=== PATIENT | male | born 1940 | race Caucasian/White ===

== ENCOUNTER 2017-08-24 07:54 | Inpatient (IN) ==
--- NOTE | 2017-08-24 08:19 | Emergency Department Note ---
Disposition Clinical Impression: Chest pain Qualifiers: Chest pain type: unspecified Qualified Code(s): R07.9 - Chest pain, unspecified Disposition: Admitted As Inpatient Condition: Good Referrals: Hank Brooks Jr, MD [Primary Care Provider] - Forms: ED Satisfaction Letter Time of Disposition: 09:26 Chest Pain HPI - General Chief Complaint: ED Chest Pain Stated Complaint: chest pain Time Seen by Provider: 08/24/17 08:06 Source: patient Mode of arrival: EMS Limitations: no limitations Vital Signs Reviewed: Yes Nursing Notes Reviewed: Yes - History of Present Illness HPI Narrative: This is a 77 year-old male with history of HTN, HLD, and CAD s/p sten, who presents with substernal chest tightness intermittently for the past 2 weeks, often brought on by exertion and relieved by rest. He developed pain 1.5 hours ago, which did not go away as quickly. It lasted about 45 minutes before it went away. At the time of evaluation, patient is CP-free. Patient reports dyspnea but describes it as chronic, unchanged. He denies any associated fever, cough, abdominal pain, nausea, vomiting, leg pain or swelling. Patient recently saw his PCP Dr. Brooks for these symptoms, and he is scheduled for a stress test 09/03. Pt complaint: chest pain Onset (ago): week(s) (2) Duration: intermittent, now resolved Onset: during rest Pain Location: substernal Severity: moderate Severity scale (1-10): 5 Quality: tightness Pain Radiation: none Improves with: rest Worsens with: exertion Associated symptoms: Reports: dyspnea (chronic, unchanged). Denies: nausea, vomiting, diaphoresis, syncope, palpitations, fever, cough, leg swelling Treatments prior to arrival chest pain: aspirin - Related Data Home Medications Medication Instructions Recorded Confirmed Aspirin [Adult Aspirin Regimen] 81 mg PO DAILY 08/24/17 08/24/17 Atorvastatin Calcium [Lipitor] 20 mg PO QPM 08/24/17 08/24/17 Garlic [Daily Garlic Once-A-Day] 400 mg PO DAILY 08/24/17 08/24/17 Metoprolol Succinate [Toprol Xl] 12.5 mg PO DAILY 08/24/17 08/24/17 Multivit-Min/FA/Lycopen/Lutein 1 tab PO DAILY 06/08/18 06/08/18 [Centrum Silver Men Tablet] [place]-3/Dha/Epa/Fish Oil [Fish Oil 1,000 mg PO DAILY 08/24/17 08/24/17 1,000 mg Softgel] Vitamin B Complex Vit C No.4 150 mg PO DAILY 08/24/17 08/24/17 [Super B Complex] Allergies Allergy/AdvReac Type Severity Reaction Status Date / Time No Known Allergies Allergy Verified 08/24/17 08:45 All systems ED: reviewed and negative except as stated. Constitutional: Denies: fever Cardiovascular: Reports: as per HPI, chest pain (resolved). Denies: palpitations, syncope Respiratory: Reports: dyspnea (chronic). Denies: cough Gastrointestinal: Denies: abdominal pain, nausea, vomiting, hematemesis, melena , hematochezia Musculoskeletal: Denies: neck pain Neurological: Denies: headache, weakness, numbness Chest Pain PMH - Past Medical History Medical history: Reports: hyperlipidemia, hypertension Psychiatric history: Reports: no psych history - Social History Smoking Status: Current every day smoker Alcohol use: Reports: occasionally Drug use: Reports: none Physical Exam - General Limitations: no limitations General appearance: alert, in no apparent distress - Head Head exam: atraumatic, normocephalic - Eye Eye exam: Present: normal appearance - ENT ENT exam: normal exam - Respiratory Respiratory exam: Present: normal lung sounds bilaterally. Absent: respiratory distress - Cardiovascular Cardiovascular exam: Present: regular rate, normal rhythm, normal heart sounds - Abdominal Exam Abdominal exam: Present: soft, Non-Tender. Absent: distention - Extremities Exam Extremities exam: Present: normal inspection. Absent: calf tenderness - Neurological Exam Neurological exam: Present: alert, oriented X3. Absent: motor sensory deficit - Psychiatric Psychiatric exam: Present: normal affect, normal mood - Skin Skin exam: Present: warm, dry, intact Course - Reevaluation(s) Reevaluation #1: Patient remains CP-free. Updated him on test results thus far. Time: 09:25 - Consultations Consultation #1: Reviewed case with Dr. Hayes, and patient accepted for admission. Time: 09:39 Vital Signs Temperature 98.2 F 08/24/17 07:59 Pulse Rate 93 08/24/17 07:59 Respiratory Rate 22 08/24/17 07:59 Blood Pressure 179/94 08/24/17 07:59 O2 Sat by Pulse Oximetry 96 08/24/17 07:59 Temperature 98.2 F 08/24/17 07:59 Pulse Rate 68 08/24/17 08:52 Respiratory Rate 20 08/24/17 08:52 Blood Pressure 159/80 08/24/17 08:52 O2 Sat by Pulse Oximetry 93 08/24/17 08:52 Oxygen Delivery Oxygen Delivery Room Air Chest Pain - Lab Data Result diagrams: 08/24/17 08:04 08/24/17 08:04 Lab Results 08/24/17 08/24/17 08/24/17 Range/Units 08:04 08:04 08:04 WBC 7.9 (4.3-11.1) K/mcL RBC 5.17 (4.19-5.50) M/mcL Hgb 16.4 (12.9-16.9) g/dL Hct 47.3 (37.5-50.1) % MCV 91.5 (83.0-100.0) fL MCH 31.7 (28.0-33.3) pg MCHC 34.7 (31.6-35.5) g/dL RDW 12.6 (11.5-14.5) % Plt Count 214 (140-400) K/mcL MPV 10.2 (9.4-12.4) fL Immature Gran % 0.3 (0-4) % Seg Neutrophils % 60.2 % Lymphocytes % 28.1 % Monocytes % 9.1 % Eosinophils % 1.8 % Basophils % 0.5 % Neutrophils # 4.7 (1.6-8.9) K/mcL Lymphocytes # 2.2 (0.6-4.6) K/mcL Monocytes # 0.7 (0.0-1.3) K/mcL Eosinophils # 0.1 (0.0-0.6) K/mcL Basophils # 0.0 (0.0-0.2) K/mcL PT 9.9 (9.4-12.1) Seconds INR 0.9 APTT 40.4 H (26.0-36.0) Seconds Sodium (136-145) mEq/L Potassium (3.5-5.1) mEq/L Chloride (98-107) mEq/L Carbon Dioxide (23-29) mEq/L BUN (8-23) mg/dL Creatinine (0.70-1.30) mg/dL Est GFR ( Amer) (> 60) Est GFR (Non-Af Amer) (> 60) BUN/Creatinine Ratio (6-26) Glucose (70-105) mg/dL Calculated Osmolality (280-300) Calcium (8.6-10.3) mg/dL Troponin I (< 0.04) ng/mL B-Natriuretic Peptide 37 (Less than 100) pg/mL 08/24/17 Range/Units 08:04 WBC (4.3-11.1) K/mcL RBC (4.19-5.50) M/mcL Hgb (12.9-16.9) g/dL Hct (37.5-50.1) % MCV (83.0-100.0) fL MCH (28.0-33.3) pg MCHC (31.6-35.5) g/dL RDW (11.5-14.5) % Plt Count (140-400) K/mcL MPV (9.4-12.4) fL Immature Gran % (0-4) % Seg Neutrophils % % Lymphocytes % % Monocytes % % Eosinophils % % Basophils % % Neutrophils # (1.6-8.9) K/mcL Lymphocytes # (0.6-4.6) K/mcL Monocytes # (0.0-1.3) K/mcL Eosinophils # (0.0-0.6) K/mcL Basophils # (0.0-0.2) K/mcL PT (9.4-12.1) Seconds INR APTT (26.0-36.0) Seconds Sodium 137 (136-145) mEq/L Potassium 3.8 (3.5-5.1) mEq/L Chloride 104 (98-107) mEq/L Carbon Dioxide 25 (23-29) mEq/L BUN 12 (8-23) mg/dL Creatinine 0.83 (0.70-1.30) mg/dL Est GFR ( Amer) > 60 (> 60) Est GFR (Non-Af Amer) > 60 (> 60) BUN/Creatinine Ratio 14 (6-26) Glucose 109 H (70-105) mg/dL Calculated Osmolality 284 (280-300) Calcium 9.9 (8.6-10.3) mg/dL Troponin I 0.03 (< 0.04) ng/mL B-Natriuretic Peptide (Less than 100) pg/mL - Radiology Data Radiology results reviewed: Yes I reviewed the patient's radiology results. XR/XR chest 1V portable IMPRESSION: No acute cardiopulmonary process. - EKG Data EKG attestation: Yes I reviewed and interpreted this EKG. EKG shows normal: sinus rhythm, axis, intervals ST segment elevation in: aVR ST segment depression in: I, II, aVF, v4, v5 Ectopy: PAC (occasional) When compared to previous EKG there are: changes noted (in comparison ith ) Interpretation: nonspecific ST-T wave changes
[2017-08-24 08:46] LABS: Basophils % 0.5 %; Eosinophils # 0.1 K/mcL (0.0-0.6); Eosinophils % 1.8 %; Hematocrit 47.3 % (37.5-50.1); Hemoglobin 16.4 g/dL (12.9-16.9); Immature Granulocytes % 0.3 % (0-4); Lymphocytes # 2.2 K/mcL (0.6-4.6); Lymphocytes % 28.1 %; Mean Corpuscular HGB Conc 34.7 g/dL (31.6-35.5); Mean Corpuscular Hemoglobin 31.7 pg (28.0-33.3); Mean Corpuscular Volume 91.5 fL (83.0-100.0); Mean Platelet Volume 10.2 fL (9.4-12.4); Monocytes # 0.7 K/mcL (0.0-1.3); Monocytes % 9.1 %; Neutrophils # 4.7 K/mcL (1.6-8.9); Platelet Count 214 K/mcL (140-400); Red Blood Count 5.17 M/mcL (4.19-5.50); Red Cell Distribution Width 12.6 % (11.5-14.5); Segmented Neutrophils % 60.2 %
[2017-08-24 08:55] LABS: INR 0.9; Prothrombin Time 9.9 Seconds (9.4-12.1)
[2017-08-24 08:58] LABS: Activated Partial Thrombo Time 40.4 Seconds (26.0-36.0); BUN/Creatinine Ratio 14 (6-26); Blood Urea Nitrogen 12 mg/dL (8-23); Calcium 9.9 mg/dL (8.6-10.3); Carbon Dioxide 25 mEq/L (23-29); Chloride 104 mEq/L (98-107); Glucose 109 mg/dL (70-105); Osmolality,Calculated 284 (280-300); Potassium 3.8 mEq/L (3.5-5.1); Sodium 137 mEq/L (136-145); eGFR For African Americans > 60 (> 60); eGFR For Non-African Americans > 60 (> 60)
[2017-08-24 09:26] LABS: Troponin I 0.03 ng/mL (< 0.04)
[2017-08-24] MEDS ORDERED: Ondansetron 4 MG/2 ML VIAL IVP PRN (09:38)
[2017-08-24] MEDS ORDERED: *HR* HYDROcodone/Acet 5/325 mg TABLET PO PRN (09:38)
[2017-08-24] MEDS ORDERED: *HR* Promethazine 25 MG/ML VIAL IVP PRN (09:38)
[2017-08-24] MEDS ORDERED: Acetaminophen 325 MG TABLET PO PRN (09:38)
[2017-08-24] MEDS ORDERED: Naloxone 0.4 MG/ML INJ IVP PRN (09:38)
[2017-08-24] MEDS ORDERED: Nitroglycerin 0.4 MG TAB.SUBL SL PRN (09:42)
--- NOTE | 2017-08-24 10:17 | Internal Med History&Physical ---
Date of Encounter: 08/24/17 Time of Encounter: 10:00 Internal Medicine - H&P: HPI Chief complaint: Chest pain Admitted From: Emergency Dept Plans for Post Hospital Care: Home History of present illness: Mr. Jimenez is a 77 year old male with a known past medical history of hypertension, hyperlipidemia and CAD with status post cardiac stents 30 years ago patient now presented emergency room complaining about 2 weeks history of intermittent chest pain located at the right chest wall region radiating to his right arm. Usually his pain last 5 to 10 minutes, however this morning the pain lasted for almost 45 minutes. Patient states that his pain is more like tightness, 6 out of 10 in severity and radiating to his right arm. He denied any active chest pain. Patient is scheduled for an outpatient stress test coming week by his PCP due to his ongoing intermittent chest pain. Past Med Surg Social Fam HX - Past Medical History Medical history: hyperlipidemia, hypertension Psychiatric history: no psych history - Social History Smoking Status: Current every day smoker Smokeless Tobacco Status: No Alcohol use: occasionally Drug use: none - Family History Mother Hx Family Endocrine Disorder: Yes (Diabetes) Father Hx Family Cardiac Disorders: Yes (CT in his 70s) - Additional Family History Additional family history: Patient stated diabetes runs in his family Internal Medicine - H&P: Meds Aspirin [Adult Aspirin Regimen] 81 mg PO DAILY 08/24/17 [History] Atorvastatin Calcium [Lipitor] 20 mg PO QPM 08/24/17 [History] Garlic [Daily Garlic Once-A-Day] 400 mg PO DAILY 08/24/17 [History] Metoprolol Succinate [Toprol Xl] 12.5 mg PO DAILY 08/24/17 [History] Multivit-Min/FA/Lycopen/Lutein [Centrum Silver Men Tablet] 1 tab PO DAILY [History] [place]-3/Dha/Epa/Fish Oil [Fish Oil 1,000 mg Softgel] 1,000 mg PO DAILY 08/24/17 [History] Vitamin B Complex Vit C No.4 [Super B Complex] 150 mg PO DAILY 08/24/17 [History ] 3 Allergy/AdvReac Type Severity Reaction Status Date / Time No Known Allergies Allergy Verified 08/24/17 08:45 All Systems PM: A 10-system review of systems was performed and is negative for pertinent findings except as documented above in the HPI. Review of systems: All the systems are reviewed everything is benign except the systems and symptoms I mentioned in the history of present illness - Constitutional Vitals: Temp Pulse Resp BP Pulse Ox 98.2 F 68 20 159/80 93 08/24/17 07:59 08/24/17 08:52 08/24/17 08:52 08/24/17 08:52 08/24/17 08:52 General appearance: Present: cooperative, A&O X 3, no acute distress, answers questions appropriately - Head Head exam: Present: atraumatic, normal inspection - Neck Neck exam general surgery: Present: supple - Respiratory Respiratory exam: Present: decreased breath sounds. Absent: rales, respiratory distress, rhonchi, wheezes - Cardiovascular Cardiovascular exam: Present: RRR, +S1, +S2. Absent: tachycardia - GI/Abdominal GI/Abdominal exam: Present: normal bowel sounds, soft. Absent: rebound, rigid, tenderness - Extremities Exam Extremities exam: Absent: calf tenderness, pedal edema, tenderness - Back Exam Back exam: Absent: CVA tenderness (L), CVA tenderness (R) - Neurological Exam Neurological exam: Present: alert, oriented X3 - Psychiatric Psychiatric exam: Present: normal affect, normal mood - Skin Skin exam: Absent: rash Internal Med - H&P Results - Labs CBC & Chem 7: 08/24/17 08:04 08/24/17 08:04 Labs: Short CBC 08/24/17 Range/Units 08:04 WBC 7.9 (4.3-11.1) K/mcL Hgb 16.4 (12.9-16.9) g/dL Hct 47.3 (37.5-50.1) % Plt Count 214 (140-400) K/mcL Neutrophils # 4.7 (1.6-8.9) K/mcL BMP 08/24/17 08:04 Sodium 137 Potassium 3.8 Chloride 104 Carbon Dioxide 25 BUN 12 Creatinine 0.83 Glucose 109 H Calcium 9.9 Cardiac Enzymes 08/24/17 Range/Units 08:04 Troponin I 0.03 (< 0.04) ng/mL - Impressions ITS Impressions Chest X-Ray 08/24/17 08:15 IMPRESSION: No acute cardiopulmonary process. D/ / 08/24/2017 08:34:26 Zaheer Johnson MD / Abi Pena Interpreting Provider: Zaheer Johnson MD - Assessment and plan (1) Chest pain Current Visit: Yes Status: Acute Assessment and plan: Will admit the pt into Tele for observation Will place pt on monitoring manager check serial troponin so far negative troponin EKG reviewed- showed normal sinus rhythm, incomplete right bundle branch block and nonspecific ST changes on lateral leads Will place pt on ASA and Nitro PRN for pain Will check FLP in AM Will get pharmacological stress test in AM since pt is high risk for ACS Qualifiers: Chest pain type: unspecified Qualified Code(s): R07.9 - Chest pain, unspecified (2) CAD (coronary artery disease), [place] coronary artery Current Visit: Yes Status: Acute Assessment and plan: Resumed home medication including aspirin, Statin and beta jarrett Qualifiers: [place] vs. transplanted heart: [place] heart Associated angina: with stable angina Qualified Code(s): I25.118 - Atherosclerotic heart disease of [place] coronary artery with other forms of angina pectoris (3) Hypertension Current Visit: Yes Status: Acute Assessment and plan: Resumed all home medications patient blood pressure fairly controlled will start him on hydralazine IV PRN Qualifiers: Hypertension type: essential hypertension Qualified Code(s): I10 - Essential (primary) hypertension (4) Hyperlipidemia Current Visit: Yes Status: Acute Assessment and plan: Resumed home medication Lipitor Qualifiers: Hyperlipidemia type: unspecified Qualified Code(s): E78.5 - Hyperlipidemia , unspecified - Time Spent With Patient Total time spent is greater than 50% in coordination of care (as documented) at patient's floor/unit and/or counseling patient:
--- NOTE | 2017-08-24 17:57 | Electrocardiograph Report ---
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
[2017-08-24] MEDS ORDERED: *HR* Heparin 5,000 UNIT/ML VIAL IVP ONE (21:11)
[2017-08-24] MEDS ORDERED: *HR* Heparin 5,000 UNIT/ML VIAL IVP PRN ×2 (21:11)
[2017-08-24] MEDS ORDERED: amLODIPine 5 MG TABLET PO ONE (21:13)
[2017-08-24 21:48] LABS: Hematocrit 43.8 % (37.5-50.1); Hemoglobin 14.8 g/dL (12.9-16.9); Mean Corpuscular HGB Conc 33.8 g/dL (31.6-35.5); Mean Corpuscular Hemoglobin 31.1 pg (28.0-33.3); Mean Platelet Volume 10.1 fL (9.4-12.4); Platelet Count 190 K/mcL (140-400); Red Blood Count 4.76 M/mcL (4.19-5.50); Red Cell Distribution Width 12.5 % (11.5-14.5)
[2017-08-24 21:54] LABS: Prothrombin Time 10.7 Seconds (9.4-12.1)
[2017-08-24 21:57] LABS: Activated Partial Thrombo Time 36.5 Seconds (26.0-36.0)
[2017-08-24] MEDS: Heparin 25,000 UNIT/500 ML D5W 25,000 UNIT/500 ML BAG IVC SCH (22:23)
[2017-08-25 05:20] LABS: Chol/HDL Ratio 2.6 (0-4.9)
[2017-08-25] MEDS ORDERED: Regadenoson 0.4 MG/5 ML SYRINGE IVP ONE (06:18)
--- NOTE | 2017-08-25 08:57 | Cardiology Consult Note ---
Date of Encounter: 08/25/17 Time of Encounter: 08:55 Assessment and Plan (1) NSTEMI (non-ST elevated myocardial infarction) Current Visit: Yes Status: Acute Per Cardiology: Initial troponin negative with subsequent troponin 0.09 and 0.11. Systolic blood pressures noted 150s to 170s, possible demand ischemia versus non-STEMI-- suspect NSTEMI as ECG has ST depressions and clinical presentation concerning for angina. CP free now. We will proceed with cardiac rehabilitation. Will check echo. On asa, statin, BB, IV Hep gtt. Plan for [facility]. (2) CAD (coronary artery disease), [place] coronary artery Current Visit: Yes Status: Chronic Per Cardiology: Reported hx of 3 stents "[address] Escalante in [place]". Suspect was roughly 15 years ago. Qualifiers: [place] vs. transplanted heart: [place] heart Associated angina: with stable angina Qualified Code(s): I25.118 - Atherosclerotic heart disease of [place] coronary artery with other forms of angina pectoris Discussion w patient/family: The assessment and plan as outlined above was discussed with the patient and/or family members who expressed understanding and agreement. All questions were answered. Thank you for involving us in the care of your patient. Please call with any questions. History of Present Illness Consult date: 08/25/17 Requesting physician: Vaughn Torres Consult reason: Elevated Trop., CP Chief complaint: CP History of present illness: Mr. Jimenez is a 77 year old male with a relevant past medical history of hypertension, hyperlipidemia, CAD, nicotine abuse. Cardiology consult for chest pain and mild troponin elevation. Patient seen with multiple family members at bedside. Currently chest pain- free. He reports development of chest pain intermittently over the past one month with exertional activities and relieved with rest. He describes a right- sided chest pressure/burning and had occasional radiation to his right arm. He denies any other accompanying symptomatology. He reports dyspnea on exertion remains about baseline over the past 3-4 years. Reports he continues to smoke about 1-1/2 packs per day smoking for about 60 years. He denies any dizziness, syncope, falls, palpitations, any active bleeding or blood loss. Reports 2 stents placed in [place] by Dr. Escalante about 30 years ago and had a third stent placed due to stent occlusion. Past Med Surg Social Fam HX - Past Medical History Attestation: Yes The following information was validated with the patient. Source: patient, old records reviewed Medical history: coronary artery disease, hyperlipidemia, hypertension Psychiatric history: no psych history - Past Surgical History Surgical History: orthopedic, other Additional surgical history: b/l shoulder replacement. heart stents 30 years ago - Social History Smoking Status: Current every day smoker Smokeless Tobacco Status: No Alcohol use: occasionally Drug use: none - Family History Mother Hx Family Endocrine Disorder: Yes (Diabetes) Father Hx Family Cardiac Disorders: Yes (OR in his 70s) Medications and Allergies Aspirin [Adult Aspirin Regimen] 81 mg PO DAILY 08/24/17 [History] Atorvastatin Calcium [Lipitor] 20 mg PO QPM 08/24/17 [History] Garlic [Daily Garlic Once-A-Day] 400 mg PO DAILY 08/24/17 [History] Metoprolol Succinate [Toprol Xl] 12.5 mg PO DAILY 08/24/17 [History] Multivit-Min/FA/Lycopen/Lutein [Centrum Silver Men Tablet] 1 tab PO DAILY [History] [place]-3/Dha/Epa/Fish Oil [Fish Oil 1,000 mg Softgel] 1,000 mg PO DAILY 08/24/17 [History] Vitamin B Complex Vit C No.4 [Super B Complex] 150 mg PO DAILY 08/24/17 [History ] 3 Allergy/AdvReac Type Severity Reaction Status Date / Time No Known Allergies Allergy Verified 08/24/17 08:45 All Systems Review: The remainder of the systems were reviewed and are negative - Cardiovascular Cardiovascular: as per HPI, chest pain with exertion, dyspnea on exertion, radiating jaw, neck or arm pain Physical Examination Vital Signs, Last 4 Hours Temp Pulse Resp BP Pulse Ox 08/25/17 08:29 95 08/25/17 07:24 98.0 F 73 16 153/69 95 General: Conversant, No Apparent Distress HEENT: Atraumatic, Normocephaly, Mucus Membranes Moist Neck: No JVD, Normal carotid pulses Cardiac: Reg Rate and Rhythm, Normal S1 and S2, No Murmur Lungs: Normal Breath Sounds, No Wheeze, Rales, Rhonchi Neuro: Alert and responsive, No focal deficits noted Abdomen: Soft, Non-Tender Skin: No rashes noted on visualized skin Musculoskeletal: No Chest Wall Tenderness Extremities: No Clubbing, No Cyanosis, No Edema, Normal Pulses Results 08/24/17 21:32 08/24/17 08:04 Lab Results Laboratory Tests 08/24/17 08/24/17 08/24/17 08:04 08:04 08:04 Hgb Hct 47.3 INR 0.9 Creatinine Est GFR (Non-Af Amer) Troponin I B-Natriuretic Peptide 37 LDL Cholesterol, Calc 08/24/17 08/24/17 08/24/17 08:04 14:42 21:00 Hgb Hct INR Creatinine 0.83 Est GFR (Non-Af Amer) > 60 Troponin I 0.03 0.09 H* 0.11 H* B-Natriuretic Peptide LDL Cholesterol, Calc 08/24/17 08/25/17 21:32 04:47 Hgb 14.8 D Hct INR Creatinine Est GFR (Non-Af Amer) Troponin I B-Natriuretic Peptide LDL Cholesterol, Calc 56 ITS Impressions Chest X-Ray 08/24/17 08:15 IMPRESSION: No acute cardiopulmonary process. D/ / 08/24/2017 08:34:26 Zaheer Johnson MD / Abi Pena Interpreting Provider: Zaheer Johnson MD Active Medications Acetaminophen (Tylenol) 650 mg PO Q6HR PRN PRN Reason: Mild Pain/Fever Stop: 02/23/18 09:39 Hydrocodone Bitart/Acetaminophen ([place] 5-325 Mg) 1 tab PO Q6HR PRN PRN Reason: Moderate Pain Stop: 02/23/18 09:39 Aspirin (Aspirin Ec) 81 mg PO DAILY [facility] Stop: 02/24/18 09:01 Atorvastatin Calcium (Lipitor) 20 mg PO QPM ALAN Stop: 02/23/18 18:01 Last Admin: 08/24/17 19:40 Dose: Not Given Heparin Sodium (Porcine) (Heparin) 4,000 unit IVP Q6H PRN PRN Reason: SEE COMMENTS Stop: 02/23/18 21:12 Heparin Sodium (Porcine) (Heparin) 2,000 unit IVP Q6H PRN PRN Reason: SEE COMMENTS Stop: 02/23/18 21:12 Hydralazine HCl (Hydralazine) 10 mg IVP Q6HR PRN PRN Reason: Hypertension Stop: 02/23/18 10:41 Last Admin: 08/24/17 14:10 Dose: 10 mg Heparin Sodium/Dextrose (Heparin 25,000 Unit/500 Ml D5w) 25,000 unit in 500 mls @ 19.994 mls/hr IVC .Q24H ALAN; 11.6 UNIT/KG/HR PRN Reason: Protocol Stop: 02/23/18 21:16 Last Titration: 08/25/17 05:20 Dose: 11.6 unit/kg/hr, 19.994 mls/hr Metoprolol Succinate (Toprol Xl) 12.5 mg PO DAILY ALAN Stop: 02/24/18 09:01 Multivitamins/Calcium (Thera M Plus) 1 tab PO DAILY ALAN Stop: 02/24/18 09:01 Naloxone HCl (Narcan) 0.4 mg IVP Q2MIN PRN PRN Reason: SEE COMMENTS Stop: 02/23/18 09:39 Nitroglycerin (Nitroglycerin) 0.4 mg SL Q5MIN PRN PRN Reason: Chest Pain Stop: 02/23/18 09:43 Ondansetron HCl (Zofran) 4 mg IVP Q8HR PRN PRN Reason: Nausea And Vomiting Stop: 02/23/18 09:39 Pharmacy Profile Note (Patient Taking Own Medication) 0 each PO DAILY ALAN Stop: 02/24/18 09:01 Promethazine HCl (Phenergan) 12.5 mg IVP Q6HR PRN PRN Reason: Nausea And Vomiting Stop: 02/23/18 09:39 Vitamin B Complex/Vit C/Vit E (Stresstab) 1 each PO DAILY ALAN Stop: 02/24/18 09:01 - Imaging and Cardiology Echo: pending Cardiac cath: pending (SR 90's, ST depression noted II, II, AVf, V4-V6, mild ST elevations noted in V1, V2-- reviewed with Dr. Landaverde) - EKG Interpretation EKG results cardiology: personally reviewed Consult Discharge Plan - Plan Referrals: Hank Brooks Jr, MD [Primary Care Provider] -
[2017-08-25] MEDS ORDERED: Metoprolol XL (24 HR) Succ 25 MG TAB.ER.24H PO SCH (09:00)
[2017-08-25] MEDS: Multivit/Ca/Min/Fe/FA 1 TAB TABLET PO SCH (09:54)
[2017-08-25] MEDS: Aspirin Enteric Coated 81 MG Tablet PO SCH (09:54)
[2017-08-25] MEDS: (Omega-3/Dha/Epa/Fish Oil [Fish Oil 1,000 Mg Softgel] PO SCH (09:54)
[2017-08-25] MEDS: Vitamin B Complex/Vit C/Vit E 1 EACH TABLET PO SCH (09:54)
[2017-08-25] MEDS ORDERED: Metoprolol XL (24 HR) Succ 25 MG TAB.ER.24H PO ONE ×2 (10:20→10:45)
--- NOTE | 2017-08-25 16:57 | Internal Med Progress Note ---
Date of Encounter: 08/25/17 Time of Encounter: 11:00 - Assessment and plan (1) NSTEMI (non-ST elevated myocardial infarction) Current Visit: Yes Status: Acute Assessment and plan: Patient presented with chest pain and found to have elevated troponins Cardiology consult with recommendations for [facility] on 08/27/17 Will continue heparin drip (2) CAD (coronary artery disease), [place] coronary artery Current Visit: Yes Status: Chronic Assessment and plan: Continue home medications -aspirin, Statin and beta jarrett Qualifiers: [place] vs. transplanted heart: [place] heart Associated angina: with stable angina Qualified Code(s): I25.118 - Atherosclerotic heart disease of [place] coronary artery with other forms of angina pectoris (3) Hypertension Current Visit: Yes Status: Acute Assessment and plan: Continue beta jarrett Qualifiers: Hypertension type: essential hypertension Qualified Code(s): I10 - Essential (primary) hypertension (4) Hyperlipidemia Current Visit: Yes Status: Acute Assessment and plan: Continue statin Qualifiers: Hyperlipidemia type: unspecified Qualified Code(s): E78.5 - Hyperlipidemia , unspecified (5) DVT prophylaxis Current Visit: Yes Status: Acute Assessment and plan: Patient on heparin drip as above - Time Spent With Patient Total time spent is greater than 50% in coordination of care (as documented) at patient's floor/unit and/or counseling patient: - Subjective Interval history: Patient without chest pain this morning but with elevated troponins that are trending upward. Cardiology with plans for [facility] on 08/27/17 - Constitutional Vitals: Temp Pulse Resp BP Pulse Ox 97.9 F 84 18 120/82 99 08/25/17 15:34 08/25/17 15:34 08/25/17 15:34 08/25/17 15:34 08/25/17 15:34 General appearance: Present: cooperative, A&O X 3, no acute distress, answers questions appropriately - Respiratory Respiratory exam: Present: CTAB. Absent: accessory muscle use, rales, rhonchi, wheezes - Cardiovascular Cardiovascular exam: Present: RRR, +S1, +S2. Absent: diastolic murmur, gallop, rubs, systolic murmur Internal Medicine: Result - Labs CBC & Chem 7: 08/24/17 21:32 08/24/17 08:04 Labs: Short CBC 08/24/17 Range/Units 21:32 WBC 9.4 (4.3-11.1) K/mcL Hgb 14.8 D (12.9-16.9) g/dL Hct 43.8 (37.5-50.1) % Plt Count 190 (140-400) K/mcL Cardiac Enzymes 08/24/17 Range/Units 21:00 Troponin I 0.11 H* (< 0.04) ng/mL - ABG Interpretation ABG results: PT/INR, D-dimer PT 10.7 Seconds (9.4-12.1) 08/24/17 21:32 - Impressions Impressions Echocardiogram 08/25/17 08:57 Impressions: LVEF 55-60%. Mild left ventricular diastolic dysfunction. No pulmonary hypertension. No significant valvular dysfunction. Left Ventricular Wall Motion: Rest Echo Findings All wall segments showed normal motion. Findings: Study Quality * Technically adequate exam. Right Ventricle * Normal right ventricular structure and function. Right Atrium * Normal right atrial size. Interatrial Septum * No evidence of PFO by color Doppler. Aorta * Normally sized aortic root. ECG Findings * Normal sinus rhythm. Left Ventricle * LVEF 55-60%. * Mild left ventricular diastolic dysfunction. Mitral Valve * Mildly calcified mitral valve leaflets. * No mitral stenosis. * Trace mitral regurgitation. Tricuspid Valve * Trace tricuspid regurgitation. * No tricuspid stenosis. * Estimated RVSP is 19 mmHg. * Estimated RA pressure is 0-5 mmHg. * No pulmonary hypertension. Aortic Valve * No aortic regurgitation. * No aortic stenosis. * Mildly calcified aortic valve leaflets. * Trileaflet aortic valve. Left Atrium * Mildly dilated left atrium. Pericardium * There is a trivial pericardial effusion present. Consult Discharge Plan - Plan Referrals: Hank Brooks Jr, MD [Primary Care Provider] -
[2017-08-25] MEDS: Heparin 25,000 UNIT/500 ML D5W 25,000 UNIT/500 ML BAG IVC SCH (23:16)
[2017-08-26] MEDS: Aspirin Enteric Coated 81 MG Tablet PO SCH (09:00)
[2017-08-26] MEDS: Vitamin B Complex/Vit C/Vit E 1 EACH TABLET PO SCH (09:00)
[2017-08-26] MEDS: Metoprolol XL (24 HR) Succ 25 MG TAB.ER.24H PO SCH (09:01)
[2017-08-26] MEDS: (Omega-3/Dha/Epa/Fish Oil [Fish Oil 1,000 Mg Softgel] PO SCH (09:01)
[2017-08-26] MEDS: Multivit/Ca/Min/Fe/FA 1 TAB TABLET PO SCH (09:01)
--- NOTE | 2017-08-26 09:31 | Cardiology Progress Note ---
Date of Encounter: 08/26/17 Time of Encounter: 09:30 Assessment and Plan (1) NSTEMI (non-ST elevated myocardial infarction) Current Visit: Yes Status: Acute Per Cardiology: Initial troponin negative with subsequent troponin 0.09 and 0.11. Systolic blood pressures noted 150s to 170s, possible demand ischemia versus non-STEMI-- suspect NSTEMI as ECG has ST depressions and clinical presentation concerning for angina. CP free now. Echo: Impressions: LVEF 55-60%. Mild left ventricular diastolic dysfunction. No pulmonary hypertension. No significant valvular dysfunction. Left Ventricular Wall Motion: Rest Echo Findings All wall segments showed normal motion. On asa, statin, BB, IV Hep gtt. Plan for [facility] tomorrow. (2) CAD (coronary artery disease), [place] coronary artery Current Visit: Yes Status: Chronic Per Cardiology: Reported hx of 3 stents "[address] Escalante in [place]". Suspect was roughly 15 years ago. Qualifiers: [place] vs. transplanted heart: [place] heart Associated angina: with stable angina Qualified Code(s): I25.118 - Atherosclerotic heart disease of [place] coronary artery with other forms of angina pectoris Discussion w patient/family: The assessment and plan as outlined above was discussed with the patient and/or family members who expressed understanding and agreement. All questions were answered. Thank you for involving us in the care of your patient. Please call with any questions. Subjective Principal diagnosis: NSTEMI Interval history: Patient denies any concerns or complaints overnight. Chest pain-free. Objective Vital Signs, Last 4 Hours Temp Pulse Resp BP Pulse Ox 08/26/17 06:26 97.9 F 65 18 122/75 94 General: Conversant, No Apparent Distress HEENT: Atraumatic, Normocephaly, Mucus Membranes Moist Neck: No JVD, Normal carotid pulses Cardiac: Reg Rate and Rhythm, Normal S1 and S2, No Murmur Lungs: Normal Breath Sounds, No Wheeze, Rales, Rhonchi Neuro: Alert and responsive, No focal deficits noted Abdomen: Soft, Non-Tender Skin: No rashes noted on visualized skin Musculoskeletal: No Chest Wall Tenderness Extremities: No Clubbing, No Cyanosis, No Edema, Normal Pulses Results 08/24/17 21:32 08/24/17 08:04 Lab Results Active Medications Acetaminophen (Tylenol) 650 mg PO Q6HR PRN PRN Reason: Mild Pain/Fever Stop: 02/23/18 09:39 Hydrocodone Bitart/Acetaminophen (Cabot 5-325 Mg) 1 tab PO Q6HR PRN PRN Reason: Moderate Pain Stop: 02/23/18 09:39 Aspirin (Aspirin Ec) 81 mg PO DAILY ALAN Stop: 02/24/18 09:01 Last Admin: 08/26/17 09:00 Dose: 81 mg Atorvastatin Calcium (Lipitor) 20 mg PO QPM ALAN Stop: 02/23/18 18:01 Last Admin: 08/25/17 18:31 Dose: 20 mg Heparin Sodium (Porcine) (Heparin) 4,000 unit IVP Q6H PRN PRN Reason: SEE COMMENTS Stop: 02/23/18 21:12 Heparin Sodium (Porcine) (Heparin) 2,000 unit IVP Q6H PRN PRN Reason: SEE COMMENTS Stop: 02/23/18 21:12 Hydralazine HCl (Hydralazine) 10 mg IVP Q6HR PRN PRN Reason: Hypertension Stop: 02/23/18 10:41 Last Admin: 08/24/17 14:10 Dose: 10 mg Heparin Sodium/Dextrose (Heparin 25,000 Unit/500 Ml D5w) 25,000 unit in 500 mls @ 19.994 mls/hr IVC .Q24H ALAN; 11.6 UNIT/KG/HR PRN Reason: Protocol Stop: 02/23/18 21:16 Last Titration: 08/26/17 08:55 Dose: 13.28 unit/kg/hr, 22.9 mls/hr Metoprolol Succinate (Toprol Xl) 25 mg PO DAILY ALAN Stop: 02/25/18 09:01 Last Admin: 08/26/17 09:01 Dose: 25 mg Multivitamins/Calcium (Thera M Plus) 1 tab PO DAILY ALAN Stop: 02/24/18 09:01 Last Admin: 08/26/17 09:01 Dose: 1 tab Naloxone HCl (Narcan) 0.4 mg IVP Q2MIN PRN PRN Reason: SEE COMMENTS Stop: 02/23/18 09:39 Nitroglycerin (Nitroglycerin) 0.4 mg SL Q5MIN PRN PRN Reason: Chest Pain Stop: 02/23/18 09:43 Ondansetron HCl (Zofran) 4 mg IVP Q8HR PRN PRN Reason: Nausea And Vomiting Stop: 02/23/18 09:39 Pharmacy Profile Note (Patient Taking Own Medication) 0 each PO DAILY ALAN Stop: 02/24/18 09:01 Last Admin: 08/26/17 09:01 Dose: Not Given Promethazine HCl (Phenergan) 12.5 mg IVP Q6HR PRN PRN Reason: Nausea And Vomiting Stop: 02/23/18 09:39 Vitamin B Complex/Vit C/Vit E (Stresstab) 1 each PO DAILY ALAN Stop: 02/24/18 09:01 Last Admin: 08/26/17 09:00 Dose: 1 each - Imaging and Cardiology Echo: report reviewed Cardiac cath: pending Consult Discharge Plan - Plan Referrals: Hank Brooks Jr, MD [Primary Care Provider] -
[2017-08-26 10:26] LABS: Basophils % 0.4 %; Eosinophils # 0.1 K/mcL (0.0-0.6); Eosinophils % 1.1 %; Hematocrit 45.7 % (37.5-50.1); Hemoglobin 15.2 g/dL (12.9-16.9); Immature Granulocytes % 0.2 % (0-4); Lymphocytes # 1.9 K/mcL (0.6-4.6); Lymphocytes % 22.9 %; Mean Corpuscular HGB Conc 33.3 g/dL (31.6-35.5); Mean Corpuscular Volume 93.1 fL (83.0-100.0); Mean Platelet Volume 10.5 fL (9.4-12.4); Monocytes # 0.5 K/mcL (0.0-1.3); Monocytes % 5.8 %; Neutrophils # 5.7 K/mcL (1.6-8.9); Platelet Count 196 K/mcL (140-400); Red Blood Count 4.91 M/mcL (4.19-5.50); Red Cell Distribution Width 12.5 % (11.5-14.5); Segmented Neutrophils % 69.6 %
[2017-08-26 10:43] LABS: BUN/Creatinine Ratio 13 (6-26); Blood Urea Nitrogen 12 mg/dL (8-23); Calcium 9.3 mg/dL (8.6-10.3); Carbon Dioxide 26 mEq/L (23-29); Chloride 102 mEq/L (98-107); Glucose 205 mg/dL (70-105); Osmolality,Calculated 286 (280-300); Potassium 3.8 mEq/L (3.5-5.1); Sodium 135 mEq/L (136-145); eGFR For African Americans > 60 (> 60); eGFR For Non-African Americans > 60 (> 60)
--- NOTE | 2017-08-26 16:12 | Internal Med Progress Note ---
Date of Encounter: 08/26/17 Time of Encounter: 11:00 - Assessment and plan (1) NSTEMI (non-ST elevated myocardial infarction) Current Visit: Yes Status: Acute Assessment and plan: Patient presented with chest pain and found to have elevated troponins Cardiology consult with recommendations for [facility] on 08/27/17 Will continue heparin drip (2) CAD (coronary artery disease), [place] coronary artery Current Visit: Yes Status: Chronic Assessment and plan: Continue home medications -aspirin, Statin and beta jarrett Qualifiers: [place] vs. transplanted heart: [place] heart Associated angina: with stable angina Qualified Code(s): I25.118 - Atherosclerotic heart disease of [place] coronary artery with other forms of angina pectoris (3) Hypertension Current Visit: Yes Status: Acute Assessment and plan: Continue beta jarrett Qualifiers: Hypertension type: essential hypertension Qualified Code(s): I10 - Essential (primary) hypertension (4) Hyperlipidemia Current Visit: Yes Status: Acute Assessment and plan: Continue statin Qualifiers: Hyperlipidemia type: unspecified Qualified Code(s): E78.5 - Hyperlipidemia , unspecified (5) DVT prophylaxis Current Visit: Yes Status: Acute Assessment and plan: Patient on heparin drip as above - Time Spent With Patient Total time spent is greater than 50% in coordination of care (as documented) at patient's floor/unit and/or counseling patient: - Subjective Interval history: Patient with elevated troponins Cardiology with plans for [facility] on 08/27/17 - Constitutional Vitals: Temp Pulse Resp BP Pulse Ox 97.9 F 73 18 135/73 93 08/26/17 15:01 08/26/17 15:01 08/26/17 15:01 08/26/17 15:01 08/26/17 15:01 General appearance: Present: cooperative, A&O X 3, no acute distress, answers questions appropriately - Respiratory Respiratory exam: Present: CTAB. Absent: accessory muscle use, rales, rhonchi, wheezes - Cardiovascular Cardiovascular exam: Present: RRR, +S1, +S2. Absent: diastolic murmur, gallop, rubs, systolic murmur Internal Medicine: Result - Labs CBC & Chem 7: 08/26/17 09:56 08/26/17 09:56 Labs: Short CBC 08/26/17 Range/Units 09:56 WBC 8.2 (4.3-11.1) K/mcL Hgb 15.2 (12.9-16.9) g/dL Hct 45.7 (37.5-50.1) % Plt Count 196 (140-400) K/mcL Neutrophils # 5.7 (1.6-8.9) K/mcL BMP 08/26/17 09:56 Sodium 135 L Potassium 3.8 Chloride 102 Carbon Dioxide 26 BUN 12 Creatinine 0.94 Glucose 205 H Calcium 9.3 - ABG Interpretation ABG results: PT/INR, D-dimer PT 10.7 Seconds (9.4-12.1) 08/24/17 21:32 Consult Discharge Plan - Plan Referrals: Hank Brooks Jr, MD [Primary Care Provider] -
[2017-08-26] MEDS: Heparin 25,000 UNIT/500 ML D5W 25,000 UNIT/500 ML BAG IVC SCH (21:12)
--- NOTE | 2017-08-27 09:08 | Event Note ---
Date of Encounter: 08/27/17 Time of Encounter: 08:30 - Cardiology Event Note ECHO: Impressions: LVEF 55-60%. Mild left ventricular diastolic dysfunction. No pulmonary hypertension. No significant valvular dysfunction. Left Ventricular Wall Motion: Rest Echo Findings All wall segments showed normal motion. Chest pain-free. Remains on IV heparin drip. Catheterization pending today. All questions answered.
[2017-08-27] MEDS ORDERED: 0.9 % Sodium Chloride 1,000 ML ONE ×2 (09:52→10:22)
[2017-08-27] MEDS ORDERED: ISOVUE-370 200 ML INFUS..BTL IV ONE (09:52)
[2017-08-27] MEDS ORDERED: Heparin 1,000 UNITS/500 mL 500 ML ONE (09:52)
[2017-08-27] MEDS ORDERED: *HR* Heparin 10,000 UNIT/10 ML VIAL ONE (09:52)
[2017-08-27] MEDS ORDERED: Nitroglycerin 1,000 MCG/10 ML VIAL IV ONE (09:52)
[2017-08-27] MEDS ORDERED: Verapamil 5 MG/2 ML VIAL ONE (10:00)
[2017-08-27] MEDS ORDERED: *HR* FentaNYL (PF) 100 MCG/2 ML VIAL ONE ×2 (10:01→17:46)
[2017-08-27] MEDS ORDERED: *HR* Midazolam HCl 2 MG/2 ML VIAL ONE (10:01)
[2017-08-27] MEDS: Metoprolol XL (24 HR) Succ 25 MG TAB.ER.24H PO SCH (10:08)
[2017-08-27] MEDS: Aspirin Enteric Coated 81 MG Tablet PO SCH (10:09)
[2017-08-27] MEDS: Vitamin B Complex/Vit C/Vit E 1 EACH TABLET PO SCH (10:09)
[2017-08-27] MEDS: Multivit/Ca/Min/Fe/FA 1 TAB TABLET PO SCH (10:09)
[2017-08-27] MEDS: (Omega-3/Dha/Epa/Fish Oil [Fish Oil 1,000 Mg Softgel] PO SCH (10:09)
[2017-08-27 10:46] LABS: Basophils % 0.3 %; Eosinophils # 0.1 K/mcL (0.0-0.6); Eosinophils % 1.2 %; Hematocrit 43.1 % (37.5-50.1); Hemoglobin 14.7 g/dL (12.9-16.9); Immature Granulocytes % 0.3 % (0-4); Lymphocytes # 1.9 K/mcL (0.6-4.6); Lymphocytes % 21.7 %; Mean Corpuscular HGB Conc 34.1 g/dL (31.6-35.5); Mean Corpuscular Hemoglobin 31.4 pg (28.0-33.3); Mean Corpuscular Volume 92.1 fL (83.0-100.0); Mean Platelet Volume 10.4 fL (9.4-12.4); Monocytes # 0.7 K/mcL (0.0-1.3); Monocytes % 8.4 %; Neutrophils # 5.9 K/mcL (1.6-8.9); Platelet Count 175 K/mcL (140-400); Red Blood Count 4.68 M/mcL (4.19-5.50); Red Cell Distribution Width 12.6 % (11.5-14.5); Segmented Neutrophils % 68.1 %
[2017-08-27 11:11] LABS: BUN/Creatinine Ratio 15 (6-26); Blood Urea Nitrogen 12 mg/dL (8-23); Calcium 9.1 mg/dL (8.6-10.3); Carbon Dioxide 27 mEq/L (23-29); Chloride 104 mEq/L (98-107); Glucose 123 mg/dL (70-105); Osmolality,Calculated 287 (280-300); Potassium 3.9 mEq/L (3.5-5.1); Sodium 138 mEq/L (136-145); eGFR For African Americans > 60 (> 60); eGFR For Non-African Americans > 60 (> 60)
--- NOTE | 2017-08-27 11:29 | Pre-Sedation Evaluation ---
Pre-sedation evaluation - Pre-sedation checklist Date of procedure: 08/27/17 Procedure: [facility] Recent Vitals: Last Vital Signs Temp 98.0 F 08/27/17 07:35 Pulse 63 08/27/17 07:35 Resp 18 08/27/17 07:35 BP 151/80 08/27/17 07:35 Pulse Ox 95 08/27/17 07:35 H&P (including ROS) documented in medical record: Yes Previous reaction to sedatives/anesthetics: No Dietary Status: NPO after Midnight Airway Assessment: Patient can open mouth completely, TMJ function normal ASA Classification *see protocol: CLASS II-Mild systemic disease Plan of Care: Pt appropriate candidate for procedure/moderate/conscious sedation , Risks/benefits of procedure/sedation discussed w/ patient/family
--- NOTE | 2017-08-27 11:31 | Event Note ---
Date of Encounter: 08/27/17 Time of Encounter: 11:30 - Cardiology Event Note LHC findings Ostial LMCA 95-99%; distal left main 60% into ostial proximal LAD 70-80% -mild moderate calcification; RCA mid 70% instent restenosis. Consult CT surgery. Recommend Urgent CABG.
--- NOTE | 2017-08-27 11:55 | Invasive Diagnostic Lab Proc ---
Name: Sánchez Jimenez Date of Study: 08/27/2017 Date: 1940 Ht: 68.1in Medical Record#: [id number] Age: 77 Wt: 211.64lb Gender: Male BSA: 2.1 Order #: [id number] BMI: 32.08 Physicians Procedure Physician: J Luis Landaverde MD, [facility] Referring MD: Referring MD: Staff Name Position Time In Ashley Richard RN Monitor 10:46 AM Tawanda Austin RT (R) Scrub 10:46 AM Marilee Castellon RN Television Producer 10:46 AM Indications Indication Non-Stemi Procedures Performed Procedure L HRT ARTERY/VENTRICLE ANGIO Pre-Procedure Checklist Informed consent is complete signed and on chart. H&P is on chart. ID band is on and ID verified with patient. Patient NPO for procedure The procedure was described for the patient and questions were answered. Blood Pressure: 176/75 ECG is on chart. Rhythm: NSR Plan of Care Patient will tolerate the procedure without complications. Adequate level of comfort will be maintained. Hemodynamics will remain stable Patient will recover from procedure without complications. Cardiac rhythm will remain stable. Patient temperature will be maintained. Patient and/or family have verbalized understanding of the procedure. Patient Education Chief Complaint/Reason for Test: Cardiac Cath Developmental Category: Geriatric (65+ years) Developmentally Appropriate for Age: Yes Learning Barriers: None Education Needs: Procedure Education Method: Verbal Information Taught: Cardiac Cath Educational Evaluation: Able to repeat information Intravenous Access Time IV Size Location DC'd Fluid/Drip Rate Units RN 10:40 AM 18g 1 /" Patent On Arrival Lt Antecubital 0.9NaCl 25 ml/hr Marilee Castellon RN Allergies No Known Allergies Vital Signs Time BP (mmHg) HR (bpm) O2 Sat. RR (bpm) LOC 09:59 AM 176 / 75 71 95 % 5 = Fully awake and oriented or at pre-proc level 10:45 AM / % 5 = Fully awake and oriented or at pre-proc level 10:45 AM / % 4 = Oriented but drowsy 11:01 AM / % 4 = Oriented but drowsy 10:42 AM 134 / 72 62 98 % 10:48 AM 166 / 84 75 96 % 10:52 AM 152 / 74 63 97 % 10:57 AM 143 / 69 66 95 % 11:02 AM 147 / 80 64 96 % 11:07 AM 78 / 51 68 95 % 11:08 AM 145 / 81 67 95 % 11:12 AM 152 / 76 68 94 % 11:17 AM 162 / 70 65 96 % 11:22 AM 148 / 76 62 97 % 11:28 AM 155 / 76 61 97 % 11:18 AM / % 4 = Oriented but drowsy Procedural Medications Time Medication Dose Units Method Given By 10:45 AM Oxygen 2 L/min nasal cannula Marilee Castellon RN 10:47 AM Versed 2 mg Intravenous Marilee Castellon RN 10:47 AM Fentanyl 50 mcg Intravenous Marilee Castellon RN 10:53 AM Lidocaine 2% 0.5 ml Subcutaneous J Luis Landaverde MD, [facility] 10:54 AM Lidocaine 2% 0.5 ml Subcutaneous J Luis Landaverde MD, [facility] 10:58 AM Lidocaine 2% 19 ml Subcutaneous J Luis Landaverde MD, [facility] ASA Classification: CLASS II- Mild systemic disease (i.e. well-controlled diabetes, hypertension, asthma, cigarette smoking) Jovon Score Preprocedure Postprocedure Activity 2- Moves 4 extremities sustained head lift Activity 2- Moves 4 extremities sustained head lift Circulation 2- SBP +/= 20 points of pre-anesthetic level Circulation 2- SBP +/= 20 points of pre-anesthetic level Consciousness 2- Awake and alert oriented x 3 Consciousness 2- Awake and alert oriented x 3 O2 Saturation 2- Able to maintain O2 satruation of 92% on room air O2 Saturation 2- Able to maintain O2 satruation of 92% on room air Respiratory 2- Able to deep breathe and cough well Respiratory 2- Able to deep breathe and cough well Total Score 10 Total Score 10 Contrast Agent: Isovue Diagnostic Contrast: 45 ml Total Contrast: 45 ml Fluoro Dose: 196 mGy Activated Clotting Time Time Seconds to Clot 11:19 AM 95 Procedure Log Time Note Enter By 10:04 AM CathStat 10:40 AM Pt arrived to parking lot laborer 1 at 10:40 scoates 10:40 AM Physician arrived 10:40 scoates 10:41 AM ASA Class CLASS II- Mild systemic disease (i.e. well-controlled diabetes, hypertension, asthma, cigarette smoking) scoates 10:41 AM Meet and greet completed scoates 10:41 AM Sign in performed according to hospital policy. scoates 10:41 AM Procedure start 10:41 scoates 10:41 AM Vitals capture started with the following parameters, Patient=Adult, Interval=5 min, Initial Ptxzkims=497 mmHg, Deflation Rate=3 mmHg, Cuff placed on Right Arm 10:42 AM HR=62 bpm, XJRP=121/72 mmhg, SpO2=98.0 %, Comment=nsr 10:45 AM Patient charges- Angio tray pack, Navilyst 3mm J, Pulse Oximetry and ACIST tubing and transducer scoates 10:45 AM Case Delayed no. inpatient scoates 10:45 AM Time: 10:45 Patient comfortable and pain free: Yes scoates 10:45 AM Time: 10:45LOC: 5 = Fully awake and oriented or at pre-proc level scoates 10:45 AM Time: 10:45 Oxygen on at 2 L/min per nasal cannula by Marilee Castellon RN scoates 10:46 AM Ashley Richard RN Position: Monitor Time in: 10:46 scoates 10:46 AM Tawanda Austin RT (R) Position: Scrub Time in: 10:46 scoates 10:46 AM Marilee Castellon RN Position: Television Producer Time in: 10:46 scoates 10:46 AM Clinical Presentation: Non-STEMI scoates 10:47 AM Time: 10:47 Fentanyl 50 mcg Intravenous Given by Marilee Castellon RN scoates 10:47 AM Time: 10:47 Versed 2 mg Intravenous Given by Marilee Castellon RN scoates 10:48 AM HR=75 bpm, FRUT=426/84 mmhg, SpO2=96.0 %, Comment=nsr 10:49 AM physician notified that we are ready scoates 10:51 AM Hair removed from procedure site in procedure lab using clippers. Right wrist and rt groin prepped with Chloraprep by Marilee Castellon RN, then patient was draped. Skin intact. scoates 10:52 AM HR=63 bpm, SIDF=102/74 mmhg, SpO2=97.0 %, Comment=nsr 10:53 AM Time out performed according to hospital policy scoates 10:54 AM Time: 10:53 0.5 ml Lidocaine 2% to right radial Subcutaneous Given by J Luis Landaverde MD, [facility] scoates 10:54 AM Unsuccessful access attempt # 1 into the right Radial artery. Manual pressure applied to achieve hemostasis.. scoates 10:55 AM Time: 10:54 0.5 ml Lidocaine 2% to right radial Subcutaneous Given by J Luis Landaverde MD, [facility] scoates 10:55 AM Pressure channel 1 zeroed. 10:56 AM Unsuccessful access attempt # 2 into the right Radial artery. Manual pressure applied to achieve hemostasis.. scoates 10:57 AM HR=66 bpm, JTBS=133/69 mmhg, SpO2=95.0 %, Comment=nsr 10:58 AM Time: 10:58 19 ml Lidocaine 2% to right groin Subcutaneous Given by J Luis Landaverde MD, [facility] scoates 11:01 AM Time: 10:45LOC: 4 = Oriented but drowsy scoates 11:01 AM Time: 10:45 Patient comfortable and pain free: Yes scoates 11:02 AM HR=64 bpm, RYVZ=042/80 mmhg, SpO2=96.0 %, Comment=nsr 11:02 AM Access obtained by percutaneous puncture. 6Fr 10cm Terumo Glidesheath sheath placed in right Femoral artery. [id number] scoates 11:03 AM 5Fr FL 4 catheter inserted over the wire [facility] scoates 11:03 AM Recorded Pressure: Ao, HR=66, Condition=Condition 1 (Aorta) Ao 143/60/96 11:05 AM Recorded Pressure: Ao, HR=66, Condition=Condition 1 (Aorta) Ao 124/67/91 11:06 AM LCA angiography performed in multiple views. scoates 11:07 AM Recorded Pressure: LV, HR=69, Condition=Condition 1 (Left Ventricle) LV 147/3/17 11:07 AM HR=68 bpm, NIBP=78/51 mmhg, SpO2=95 % 11:07 AM NIBP STAT measurement started. 11:07 AM Catheter selectively placed in left ventricle scoates 11:08 AM Bolus angiogram of left Ventricle complete: 10 ml/sec for a total of 30 mls scoates 11:08 AM Recorded Pressure: LV, Ao, HR=66, Condition=Condition 1 (Left Ventricle) LV 140/4/18, (Aorta) Ao 142/59/92 11:08 AM Recorded Pressure: Ao, HR=68, Condition=Condition 1 (Aorta) Ao 143/65/96 11:08 AM Recorded Pressure: Ao, HR=67, Condition=Condition 1 (Aorta) Ao 123/73/96 11:08 AM HR=67 bpm, DSID=469/81 mmhg, SpO2=95 % 11:09 AM Catheter removed scoates 11:10 AM Recorded Pressure: Ao, HR=72, Condition=Condition 1 (Aorta) Ao 138/59/90 11:10 AM 5Fr FR 4 catheter inserted over the wire DNC scoates 11:11 AM RCA angiography performed in multiple views. scoates 11:11 AM Coronary Dominance: right scoates 11:12 AM Bolus angiogram of right Femoral complete: 4 ml/sec for a total of 7 mls scoates 11:12 AM HR=68 bpm, WJUR=959/76 mmhg, SpO2=94.0 % 11:12 AM Coronary Dominance: right scoates 11:12 AM Lesion found in LMCA. Pre Stenosis: 95 Pre MARISELA Flow: scoates 11:12 AM Lesion found in LMCA. Pre Stenosis: 60 Pre MARISELA Flow: scoates 11:12 AM Lesion found in Mid RCA. Pre Stenosis: 80 Pre MARISELA Flow: scoates 11:13 AM Lesion found in Proximal LAD. Pre Stenosis: 70 Pre MARISELA Flow: scoates 11:13 AM Procedure completed at 11:13 scoates 11:17 AM HR=65 bpm, GJTB=553/70 mmhg, SpO2=96 % 11:18 AM Time: 11:01LOC: 4 = Oriented but drowsy scoates 11:19 AM At 11:19 the ACT was 146 seconds. scoates 11:20 AM Sign out completed: Radiation Dose 196 mGy Fluoro Time: 2.0 Isovue 370 - 200ml contrast 45 ml given by J Luis Landaverde MD, [facility]. Complications: NoneCardiac Rehab Consult needed: NoConfirmed administered medications: Yes scoates 11:20 AM Isovue 370 - 200ml,1 Bottle(s) used. scoates 11:20 AM Arterial sheath pulled using manual compression and V+ Pad for 15 minutes by Tawanda Austin RT (R) scoates 11:20 AM Estimated Blood Loss: minimal scoates 11:20 AM Post ECG NSR scoates 11:20 AM Post Blood Pressure 162/70 scoates 11:22 AM 11:20 Post Pulses Bilateral DP & PT 2+ scoates 11:22 AM HR=62 bpm, YVWE=363/76 mmhg, SpO2=97 % 11:22 AM Information taught Cardiac Cath scoates 11:22 AM Education needs Procedure, Plan of Care, and Responsibilities of Patient in Care scoates 11:22 AM Learning barriers :None scoates 11:23 AM Education evaluation Able to repeat information scoates 11:23 AM Plavix, Effient or Brilinta given No scoates 11:25 AM Delay to floor No scoates 11:28 AM HR=61 bpm, BPKE=512/76 mmhg, SpO2=97 % 11:29 AM Family placed in consult room. scoates 11:29 AM Complications: None scoates 11:30 AM Fluoro Time: 2 scoates 11:30 AM Isovue 370 - 200ml contrast 45 ml given by . scoates 11:31 AM Cardiothoracic surgeon consulted by physician scoateedouard 11:32 AM Site status No bleeding/hematoma - Rt Groin as reported by Tawanda Austin RT (R) at 11:32 scoates 11:33 AM Time: 11:18LOC: 4 = Oriented but drowsy scoates 11:41 AM Report given to Fidelina LEWIS Pt taken to ICU Room #11. 11:41 scoates 11:41 AM Patient out of room: 11:41 scoates Complications Complication None None Hemodynamics Pressures Site Systolic/A Wave Diastolic/V Wave Mean AO 143 60 96 AO 124 67 91 LV 147 3 17 LV 140 4 18 AO 142 59 92 AO 143 65 96 AO 123 73 96 AO 138 59 90 Post Procedure Information Blood Pressure: 162/70 mmHg Rhythm: NSR Post procedural instructions were given Surgery consult for CABG Closure Device Time Device Success/Fail 08/27/2017 11:32:00 AM Manual Compression Successful Site Checks Time Location Status Staff Sheath In? Note 11:32 AM Rt Groin No bleeding/hematoma Tawanda Austin RT (R) Pulses Time Site Pre-Procedure Post-Procedure Note 08/27/2017 10:40:00 AM Bilateral DP & PT 2+ 08/27/2017 10:40:00 AM Bilateral radial 2+ 11:20:00 AM Bilateral DP & PT 2+ Updated by Ashley Escamilla RN on 08/27/2017 11:46:15 AM electronically signed on 08/27/2017 11:47:00 AM with status of Final
[2017-08-27] MEDS ORDERED: CeFAZolin Syr 2,000MG/20 ML 2,000 MG/20 ML SYRINGE IVPB ONE (12:06)
[2017-08-27] MEDS ORDERED: Lidocaine 2% Syringe 100 MG/5 ML IV ONE (12:34)
[2017-08-27] MEDS ORDERED: Mannitol 25% vial 12.5 GM/50 ML VIAL IVP ONE (12:34)
[2017-08-27] MEDS ORDERED: Tranexamic Acid 1,000 MG/10 ML VIAL IVPB ONE (12:34)
[2017-08-27] MEDS ORDERED: *HR* Magnesium Sulfate 2 GM/50 ML PIGGYBACK IVPB ONE (12:34)
[2017-08-27] MEDS ORDERED: *HR* Heparin 10,000 UNIT/10 ML VIAL IV ONE (12:34)
[2017-08-27] MEDS ORDERED: *HR* Phenylephrine 10 MG/ML VIAL IVC ONE (12:34)
[2017-08-27] MEDS ORDERED: Albumin Human 25% 25 GM/100 ML IV.SOLN IV ONE (12:34)
--- NOTE | 2017-08-27 12:34 | Cardiothoracic Consult Note ---
Date of Encounter: 08/27/17 Time of Encounter: 12:26 Assessment and Plan (1) NSTEMI (non-ST elevated myocardial infarction) Current Visit: Yes Status: Acute The patient is a 77-year-old hypertensive man with hypercholesterolemia known CAD was admitted to [facility] on 08/24/2017 with an acute NSTEMI. He was admitted to [facility] for further cardiac workup. A transthoracic echocardiogram revealed an LVEF 55-60% with mild left ventricular diastolic dysfunction. Subsequent cardiac catheterization performed today revealed severe 3 vessel CAD. In particular, the patient had a 95% ostial left main lesion, 70% proximal LAD lesion, and an 80% proximal RCA in -stent restenosis. He is been recommended for urgent CABG. The STS risk calculator gives the patient and operative mortality risk 2.47%, deep sternal wound infection risk 0.49%, permanent stroke risk 0.87%, renal failure risk 2.21 %, and reoperation risk 6.27%. Patient understands the procedure, benefits, alternatives, and risks and gives his informed consent. We will proceed with CABG this afternoon. The assessment and plan as outlined above was discussed with the patient and/or family members who expressed understanding and agreement. All questions were answered. - History of Present Illness Consult date: 08/27/17 Requesting physician: J Luis Landaverde Consult reason: CABG evaluation Chief complaint: NSTEMI History of present illness: Mr. Jimenez is a 77 year old hypertensive man with hypercholesterolemia and known CAD who was admitted to [facility] on 08/24/2017 with right precordial chest pain radiating to his right elbow. The patient's cardiac history dates back some 15 years ago at which time he underwent PCI with RCA stent placement 2. The patient had in-stent restenosis and underwent a second RCA placement. In the interim he did well; however, 2 weeks ago he began experiencing exertional, nonradiating right precordial chest pain and shortness of breath. He states that the shortness of breath has been present since February 2017. At that time he noticed shortness of breath and dyspnea on exertion while hunting. During the last 2 weeks, he has had exertional right precordial chest pain while walking quickly or working in his garden. On the day of admission the patient was preparing his boat for a fishing trip when he had severe right precordial chest pain radiating to his right elbow and shortness of breath. The patient rested for several minutes; however, had no relief of his chest pain. Previously, his chest pain would resolve with rest. The patient was transported to [facility] emergency department where he was found to have elevated troponin I levels consistent with an acute NSTEMI. The patient's chest pain resolved shortly after arriving in the emergency department. Given his presenting symptoms, known CAD, and cardiac risk profile, he was admitted for further cardiac workup. The patient underwent a transthoracic echocardiogram which revealed an LVEF 55- 60% with mild left ventricular diastolic dysfunction. There was no valvular dysfunction. Subsequent cardiac catheterization revealed severe 3 vessel CAD. In particular, the patient has a 95% ostial left main lesion, a 70% proximal LAD lesion, and an 80% proximal RCA in-stent restenosis. The patient has been recommended for urgent CABG. Past Med Surg Social Fam HX - Past Medical History Medical history: coronary artery disease, hyperlipidemia, hypertension Psychiatric history: no psych history - Past Surgical History Surgical History: orthopedic, other (Left total shoulder replacement, right total shoulder replacement, ORIF left calcaneal fracture) Additional surgical history: b/l shoulder replacement. heart stents 30 years ago - Social History Smoking Status: Current every day smoker Packs per day: 1.5 PPD X 60 years Smokeless Tobacco Status: No Alcohol use: occasionally Drug use: none Occupational status: retired Current living situation: Home - Independent Activity Level: Independent ambulation, Very active Recent Out of Country Travel Within the Last 8 Weeks: No Exposure or Possible Exposure to Illness During Travel: No - Family History Mother Hx Family Endocrine Disorder: Yes (Diabetes) Father Hx Family Cardiac Disorders: Yes ([place] in his 70s) Medications and Allergies Aspirin [Adult Aspirin Regimen] 81 mg PO DAILY 08/24/17 [History] Atorvastatin Calcium [Lipitor] 20 mg PO QPM 08/24/17 [History] Garlic [Daily Garlic Once-A-Day] 400 mg PO DAILY 08/24/17 [History] Metoprolol Succinate [Toprol Xl] 12.5 mg PO DAILY 08/24/17 [History] Multivit-Min/FA/Lycopen/Lutein [Centrum Silver Men Tablet] 1 tab PO DAILY [History] [place]-3/Dha/Epa/Fish Oil [Fish Oil 1,000 mg Softgel] 1,000 mg PO DAILY 08/24/17 [History] Vitamin B Complex Vit C No.4 [Super B Complex] 150 mg PO DAILY 08/24/17 [History ] 3 Allergy/AdvReac Type Severity Reaction Status Date / Time No Known Allergies Allergy Verified 08/24/17 08:45 All Systems Review: The remainder of the systems were reviewed and are negative Physical Examination Vital Signs, Last 4 Hours Pulse Resp BP Pulse Ox 08/27/17 12:07 63 12 150/79 97 General: Conversant, No Apparent Distress HEENT: Atraumatic, Normocephaly, Trachea midline Neck: No JVD, Normal carotid pulses Cardiac: Reg Rate and Rhythm, Normal S1 and S2, No Murmur Lungs: Normal Breath Sounds, No Wheeze, Rales, Rhonchi Neuro: Alert and responsive, No focal deficits noted, Motor nerves intact, Sensory nerves intact Vascular: Normal capillary refill Abdomen: Soft, Non-tender Skin: No rashes noted on visualized skin Musculoskeletal: No Chest Wall Tenderness Extremities: No Clubbing, No Cyanosis, No Edema, Normal Pulses Results 08/27/17 10:03 08/27/17 10:03 Lab Results, Last 24 hours 08/27/17 08/27/17 10:03 10:03 WBC 8.7 Hgb 14.7 Hct 43.1 Plt Count 175 Sodium 138 Potassium 3.9 Chloride 104 Carbon Dioxide 27 BUN 12 Creatinine 0.78 Glucose 123 H Calcium 9.1 - Imaging Chest Xray: image reviewed (No pneumothorax. No active pulmonary disease.) Consult Discharge Plan - Plan Referrals: Hank Brooks Jr, MD [Primary Care Provider] -
[2017-08-27] MEDS ORDERED: Nitroglycerin 25 MG/250 ML INFUS..BTL IVC ONE ×2 (12:48→16:33)
[2017-08-27] MEDS ORDERED: *HR* Propofol 200 MG/20 ML VIAL IVP ONE (12:50)
[2017-08-27] MEDS ORDERED: *HR* Rocuronium Bromide 50 MG/5 ML VIAL ONE ×2 (12:50→14:55)
[2017-08-27] MEDS ORDERED: *HR* EPINEPHrine 1 MG/ML AMPUL ONE (12:51)
[2017-08-27] MEDS ORDERED: *HR* Midazolam HCl 5 MG/5 ML VIAL IVP ONE (12:51)
[2017-08-27] MEDS ORDERED: *HR* FentaNYL (PF) 1,000 MCG/20 ML VIAL ONE (12:51)
[2017-08-27] MEDS ORDERED: *HR* Phenylephrine 10 MG/ML VIAL ONE (12:52)
[2017-08-27] MEDS ORDERED: Lidocaine 2% Syringe 100 MG/5 ML ONE (12:59)
[2017-08-27] MEDS ORDERED: Norepinephrine 4 MG in D5% in Water 250 ML IVC PRN (13:00)
[2017-08-27] MEDS ORDERED: Heparin 15,000 UNIT in 0.9 % Sodium Chloride 500 ML IV SCH (13:00)
[2017-08-27] MEDS ORDERED: Dextrose 50 % in Water (Vial) 30 ML, Sodium Bicarbonate 20 MEQ, Lidocaine 1% 5 ML, Insu... TH SCH (13:00)
[2017-08-27] MEDS ORDERED: Insulin Human Regular 100 UNIT in 0.9 % Sodium Chloride 100 ML IV PRN (13:00)
[2017-08-27] MEDS ORDERED: Dextrose 50 % in Water (Vial) 30 ML, Sodium Bicarbonate 20 MEQ, Potassium Chloride 15 M... TH ONE (13:00)
--- NOTE | 2017-08-27 13:11 | Anesthesia Evaluation PreOp ---
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 History: Denies Any Significant HX Other Medical History: GERD Anesthesia History: No Prior Anesthetic Complications, Past Anesthesia Alcohol Use: occasionally Drug use: none Medications and Allergies Aspirin [Adult Aspirin Regimen] 81 mg PO DAILY 08/24/17 [History] Atorvastatin Calcium [Lipitor] 20 mg PO QPM 08/24/17 [History] Garlic [Daily Garlic Once-A-Day] 400 mg PO DAILY 08/24/17 [History] Metoprolol Succinate [Toprol Xl] 12.5 mg PO DAILY 08/24/17 [History] Multivit-Min/FA/Lycopen/Lutein [Centrum Silver Men Tablet] 1 tab PO DAILY [History] [place]-3/Dha/Epa/Fish Oil [Fish Oil 1,000 mg Softgel] 1,000 mg PO DAILY 08/24/17 [History] Vitamin B Complex Vit C No.4 [Super B Complex] 150 mg PO DAILY 08/24/17 [History ] 3 Allergy/AdvReac Type Severity Reaction Status Date / Time No Known Allergies Allergy Verified 08/24/17 08:45 - Meds/Allergy Pre-op Review Medications Reviewed: Yes Allergies Reviewed: Yes Beta Blockers on Current Med List: Yes (Metoprolol) If Beta Blockers taken, Date/Time (Last Dose taken): 08/27/2017 at 1008 Anesthesia Results - Labs 08/27/17 10:03 08/27/17 10:03 - Imaging EKG: report reviewed, image reviewed Additional studies: admitted to [facility] on 08/24/2017 with an acute NSTEMI. He was admitted to [facility] for further cardiac workup. A transthoracic echocardiogram revealed an LVEF 55-60% with mild left ventricular diastolic dysfunction. Subsequent cardiac catheterization performed today revealed severe 3 vessel CAD. In particular, the patient had a 95% ostial left main lesion, 70% proximal LAD lesion, and an 80% proximal RCA in-stent restenosis 08/25/2017 Echo Impressions: LVEF 55-60%. Mild left ventricular diastolic dysfunction. No pulmonary hypertension. No significant valvular dysfunction.. Anesthesia Exam Vital Signs/O2 Sat/Glucose, Most Recent Temp Pulse Resp BP Pulse Ox 98.0 F 63 12 150/79 97 08/27/17 07:35 08/27/17 12:07 08/27/17 12:07 08/27/17 12:07 08/27/17 12:07 Blood Glucose* 104 Weight: 84.4 NPO (# of Hours): greater than 8 - HEENT Pupil (Motor): Pupils equal Mallampati: II Denture Type: Upper: Complete - APPLICATION DEVELOPMENT DIRECTOR APPLICATION DEVELOPMENT DIRECTOR Motor: Normal RUE, Normal LUE, Normal RLE, Normal LLE, Normal Face APPLICATION DEVELOPMENT DIRECTOR Sensory: Normal: RUE, LUE, RLE, LLE, Face - Cardiac Rhythm: Regular Murmur: None - Pulmonary Breath Sounds: bilateral Clear Respiratory Effort: Symmetrical Anesthesia Assess/Plan ASA Score: 4, E Modified [place] Scale for Level of Consciousness: Cooperative, oriented, and tranquil Anesthetic Plan: General Monitoring Plan: Standard Monitors, A-Line, PAC, JOSE LUIS Recovery Plan: ICU
--- NOTE | 2017-08-27 13:12 | Event Note ---
Date of Encounter: 08/27/17 Time of Encounter: 13:10 - Cardiology Event Note Planned CABG this afternoon. Cardiology will s/o, re-consult PRN, f/u arranged.
[2017-08-27 13:59] LABS: ABG Base Excess 2 mEq/L (-2 to 3); ABG Chloride 105 mEq/L (98-107); ABG Glucose 100 mg/dL (60-95); ABG HCO3 28 mEq/L (21-27); ABG Ionized Calcium 1.16 mmol/L (1.15-1.35); ABG Oxygen Saturation 100 % (95-98); ABG PCO2 49 mmHg (35-45); ABG PH 7.36 pH Units (7.32-7.45); ABG PO2 231 mmHg (85-104); ABG TCO2 29 mEq/L (20-26)
[2017-08-27] MEDS ORDERED: *HR* Magnesium Sulfate 1 GM/2 ML VIAL ONE (14:27)
[2017-08-27] MEDS ORDERED: Tranexamic Acid 1,000 MG/10 ML VIAL ONE (14:42)
[2017-08-27] MEDS ORDERED: Famotidine 20 MG/2 ML VIAL ONE (14:48)
--- NOTE | 2017-08-27 14:51 | Anesthesia Procedures ---
Date of Encounter: 08/27/17 Time of Encounter: 13:30 Procedures: Anesthesia - Arterial Line Consent obtained: written consent Time out performed: Yes Sedation: Versed (mg): 2 Supplemental Oxygen via Nasal Cannula (L/min): 2 Local Anesthetic: Lidocaine 1% Size (Gauge): 20 Length (inches): 1 3/4 Technique Used: sterile prep, direct puncture technique Post-Procedure: dry sterile dressing placed Patient tolerated procedure: well Complications: none Site: Radial L Vitals: see anesthesia record - Central Line Placement Right IJ Time out performed: Yes Patient placed on monitor/pulse ox: Yes Supplemental Oxygen via Nasal Cannula (L/min): 4 (general anesthesia) MD prep: mask, gown, gloves Central line prep: Chlorhexidine scrub Ultrasound used for placement: Yes Technique: Seldinger Lumen Inserted: Introducer Size / Length: 9 Fr / 10 cm Post procedure: sutured in place, good blood return, sterile dressing applied Patient tolerated procedure: well Complications: none Comments: PAC inserted using pressure waveform analysis. Secured at 48 cm
[2017-08-27 15:01] LABS: ABG Base Excess 0 mEq/L (-2 to 3); ABG Chloride 105 mEq/L (98-107); ABG Glucose 122 mg/dL (60-95); ABG HCO3 27 mEq/L (21-27); ABG Ionized Calcium 1.16 mmol/L (1.15-1.35); ABG Oxygen Saturation 100 % (95-98); ABG PCO2 48 mmHg (35-45); ABG PH 7.35 pH Units (7.32-7.45); ABG PO2 249 mmHg (85-104); ABG TCO2 28 mEq/L (20-26)
[2017-08-27] MEDS ORDERED: Protamine Sulfate 250 MG/25 ML VIAL IVP ONE (15:16)
[2017-08-27 15:33] LABS: ABG Base Excess 2 mEq/L (-2 to 3); ABG Chloride 99 mEq/L (98-107); ABG Glucose 161 mg/dL (60-95); ABG HCO3 26 mEq/L (21-27); ABG Ionized Calcium 0.97 mmol/L (1.15-1.35); ABG Oxygen Saturation 100 % (95-98); ABG PCO2 36 mmHg (35-45); ABG PH 7.47 pH Units (7.32-7.45); ABG PO2 558 mmHg (85-104); ABG TCO2 27 mEq/L (20-26)
[2017-08-27] MEDS ORDERED: Ondansetron 4 MG/2 ML VIAL ONE (15:53)
[2017-08-27 15:55] LABS: ABG Base Excess 3 mEq/L (-2 to 3); ABG Chloride 100 mEq/L (98-107); ABG Glucose 147 mg/dL (60-95); ABG HCO3 27 mEq/L (21-27); ABG Ionized Calcium 1.03 mmol/L (1.15-1.35); ABG Oxygen Saturation 100 % (95-98); ABG PCO2 38 mmHg (35-45); ABG PH 7.46 pH Units (7.32-7.45); ABG PO2 543 mmHg (85-104); ABG TCO2 28 mEq/L (20-26)
[2017-08-27] MEDS ORDERED: *HR* FentaNYL (PF) 250 MCG/5 ML VIAL ONE (16:16)
[2017-08-27] MEDS ORDERED: Albumin Human 5% 50.0 GM/1,000 ML VIAL ONE (16:33)
[2017-08-27 16:35] LABS: ABG Base Excess 0 mEq/L (-2 to 3); ABG Chloride 104 mEq/L (98-107); ABG Glucose 96 mg/dL (60-95); ABG HCO3 25 mEq/L (21-27); ABG Ionized Calcium 1.49 mmol/L (1.15-1.35); ABG Oxygen Saturation 100 % (95-98); ABG PCO2 41 mmHg (35-45); ABG PO2 207 mmHg (85-104); ABG TCO2 27 mEq/L (20-26)
[2017-08-27] MEDS ORDERED: Calcium Chloride 1,000 MG in 0.9 % Sodium Chloride 100 ML IVPB PRN (17:04)
[2017-08-27] MEDS ORDERED: *HR* Dextrose 50 % in Water (Syg) 50 ML SYRINGE IVP PRN (17:04)
[2017-08-27] MEDS ORDERED: Potassium Chloride 40 MEQ/200 ML BAG IVPB PRN (17:04)
[2017-08-27] MEDS ORDERED: *HR* FentaNYL (PF) 100 MCG/2 ML VIAL IVP PRN (17:04)
[2017-08-27] MEDS ORDERED: *HR* OxyCODONE/APAP 5/325 TABLET PO PRN (17:04)
[2017-08-27] MEDS ORDERED: Acetaminophen 650 MG RECTAL SUPP RC PRN (17:04)
[2017-08-27] MEDS ORDERED: Insulin Regular, Human 100 UNIT/ML IV PRN (17:04)
--- NOTE | 2017-08-27 17:04 | Operative Note ---
Date of procedure: 08/27/17 Pre-op diagnosis: NSTEMI Post-op diagnosis: same Procedure: 1. CABG 3 (BRADLEY to LAD, SVG to ramus intermediate branch, SVG to distal RCA). 2. Endoscopic vein harvesting, greater saphenous vein from right lower extremity. Implants: None. Complications: None. Anesthesia: GETA Surgeon: Heydi Gutierrez Was there an operating room assistant present: Yes Day Care Director: Nguyễn King Estimated blood loss (cc): 500 Specimen: None. Condition: stable Disposition: ICU Procedure in Detail: INDICATIONS FOR OPERATION: The patient Mr. Jimenez is a 77 year old hypertensive man with hypercholesterolemia and known CAD who was admitted to [facility] on 08/24/2017 with right precordial chest pain radiating to his right elbow. The patient's cardiac history dates back some 15 years ago at which time he underwent PCI with RCA stent placement 2. The patient had in-stent restenosis and underwent a second RCA placement. In the interim he did well; however, 2 weeks ago he began experiencing exertional, nonradiating right precordial chest pain and shortness of breath. He states that the shortness of breath has been present since February 2017. At that time he noticed shortness of breath and dyspnea on exertion while hunting. During the last 2 weeks, he has had exertional right precordial chest pain while walking quickly or working in his garden. On the day of admission the patient was preparing his boat for a fishing trip when he had severe right precordial chest pain radiating to his right elbow and shortness of breath. The patient rested for several minutes; however, had no relief of his chest pain. Previously, his chest pain would resolve with rest. The patient was transported to [facility] emergency department where he was found to have elevated troponin I levels consistent with an acute NSTEMI. The patient's chest pain resolved shortly after arriving in the emergency department. Given his presenting symptoms, known CAD, and cardiac risk profile, he was admitted for further cardiac workup. The patient underwent a transthoracic echocardiogram which revealed an LVEF 55- 60% with mild left ventricular diastolic dysfunction. There was no valvular dysfunction. Subsequent cardiac catheterization revealed severe 3 vessel CAD. In particular, the patient has a 95% ostial left main lesion, a 70% proximal LAD lesion, and an 80% proximal RCA in-stent restenosis. The patient has been recommended for urgent CABG. FINDINGS AT OPERATION: The aorta was of normal caliber without calcification. The coronary arteries measure approximately 2-3 mm in diameter and had mild distal disease. The greater saphenous vein was harvested endoscopically from the right lower extremity from the knee to the groin and was of good quality. The total bypass time was 52 minutes, cross-clamp time 28 minutes, intentional hypothermia of 34.6 degrees centigrade. DESCRIPTION OF OPERATION: After obtaining informed operative consent from the patient, he was taken to the operative room where a satisfactory general endotracheal anesthetic was induced. Appropriate monitor lines placed, the patient's chest, abdomen, and lower extremities were prepped and draped in a sterile fashion. The greater saphenous vein was harvested endoscopically from the right lower extremity from the knee to the groin. The vein was removed, distended, and found to be of good quality. The simultaneous tissue and skin edges were reapproximated running Vicryl sutures. Simultaneously, a standard mean sternotomy incision was made and the sternum divided. The BRADLEY was taken down from its bed and side branches divided between hemoclips. The sternum was the pericardium opened and reflected laterally. The patient was prepared for cannulation by placing pursestring sutures the distal ascending aorta, mid-ascending aorta, and right atrial appendage. The patient was heparinized with ACT was greater than 200 seconds, the distal ascending aorta was cannulated followed by placement of a dual stage venous cannula through the right atrial appendage and into the inferior vena cava. A stab-and antegrade metabolic and is placed in the mid- ascending aorta. The patient was placed on bypass and the temperature allowed to drift to 34.6 degrees centigrade. The distal targets were identified and the aorta was crossclamped patient received 700 mL of cold antegrade crystalloid cardioplegia through the aortic root and the patient's heart and rapid diastolic arrest. The distal RCA was opened be blade and the vein was anastomosed in end-to-side fashion using running 7-0 Prolene suture. The anastomosis found to be hemostatic. The ramus intermediate branch was intramyocardial throughout most of its course and was identified proximally. The myocardium was divided, exposing the ramus intermediate branch. This vessel was opened the [place] blade and the vein was anastomosed in an end-to-side fashion using running 7-0 Prolene suture. The anastomosis found to be hemostatic and the patient received a final dose of cold antegrade crystalloid cardioplegia through the aortic root. The LAD was opened the [place] blade and the BRADLEY was anastomosed to the LAD in an end-to-side fashion using running 7-0 Prolene suture. The anastomosis found to be hemostatic and the mammary pedicle was tacked to the epicardium using interrupted 5-0 silk suture. Rewarming was begun during this anastomosis. The aortic cross-clamp was released and the heart distended. The veins were measured and cut appropriate lengths. A partial occluding clamps placed across the midascending aorta and the antegrade cardioplegia cannula was removed. An additional aortotomy site was made with 11 blade and both sites were enlarged performing were punch. The veins were anastomosed in an end-to-side fashion to the ascending aorta using running 5-0 Prolene suture. The vein grafts were occluded with bulldog clamp and de-aired the 25-gauge needle prior to removing the partial occluding clamp. The proximal and distal anastomoses were found to be hemostatic and the proximal anastomoses were marked with radiopaque loops. Two right ventricular temporary pacing lesion placed, and 3 chest suture placed , 2 in the mediastinum and one into the left pleural space. During rewarming the patient's heart regained normal sinus rhythm spontaneously. When the patient's systemic temperature reached 36 degrees centigrade he was ventilated and received volume. He was weaned from bypass required no inotropic support. Protamine was administered and the aortic and venous cannulae were removed. The pursestring sutures were secured. The aortic cannulation site was reinforced with a pledgeted 4 Prolene suture and the venous cannulation site was reinforced with a running 4-0 Prolene suture. The pericardium was loosely approximated in midline using interrupted 0 silk suture. The sternum was reapproximated sternal wires and the pectoralis major fascia, rectus Dominus fascia, subcutaneous tissue, and skin edges were reapproximated running Vicryl sutures. Sterile dressings were applied. The patient was transferred to the ICU in satisfactory postoperative condition. There were no intraoperative complications, and the instrument, needle, and sponge count were corrected and of operation. - Open Heart Detail RAQUEL (Internal Mammary Artery) Usage: Yes Cardiopulmonary Bypass Time (mins): 52 Aortic Cross Clamp Time (mins): 28 Intentional Hypothermia Temperature (C.): 34.6
[2017-08-27] MEDS ORDERED: 0.9 % Sodium Chloride w KCl 20 MEQ/1,000 ML MLS IVC SCH (17:15)
[2017-08-27] MEDS ORDERED: Norepinephrine 4 MG in D5% in Water 250 ML IVC SCH (17:15)
[2017-08-27] MEDS ORDERED: Insulin Human Regular 100 UNIT in 0.9 % Sodium Chloride 100 ML IVC SCH (17:15)
--- NOTE | 2017-08-27 17:22 | Event Note ---
Date of Encounter: 08/27/17 Time of Encounter: 17:00 Patient was taken to the OR this morning for CABG procedure by cardiothoracic. Patient's care will be transferred to cardiothoracic team and hospitalist service will sign off.
[2017-08-27] MEDS ORDERED: niCARdipine 40 MG/200 ML MLS IVC ONE (17:34)
[2017-08-27 17:44] LABS: ABG Base Excess 2 mEq/L (-2 to 3); ABG HCO3 28 mEq/L (21-27); ABG Oxygen Saturation 97 % (95-98); ABG PCO2 48 mmHg (35-45); ABG PH 7.37 pH Units (7.32-7.45); ABG PO2 90 mmHg (85-104); ABG TCO2 29 mEq/L (20-26); Blood Gas Modality ASSIST CONTROL; Blood Gas PEEP 5 cm H2O; Blood Gas Respiration Rate 10; Blood Gas VT 600 cc
[2017-08-27 17:59] LABS: Basophils % 0.2 %; Eosinophils # 0.1 K/mcL (0.0-0.6); Eosinophils % 0.8 %; Hematocrit 37.1 % (37.5-50.1); Immature Granulocytes % 0.5 % (0-4); Lymphocytes # 1.6 K/mcL (0.6-4.6); Lymphocytes % 12.3 %; Mean Corpuscular HGB Conc 34.8 g/dL (31.6-35.5); Mean Corpuscular Hemoglobin 32.2 pg (28.0-33.3); Mean Corpuscular Volume 92.5 fL (83.0-100.0); Mean Platelet Volume 10.3 fL (9.4-12.4); Monocytes # 1.1 K/mcL (0.0-1.3); Monocytes % 8.4 %; Neutrophils # 10.4 K/mcL (1.6-8.9); Platelet Count 110 K/mcL (140-400); Red Blood Count 4.01 M/mcL (4.19-5.50); Red Cell Distribution Width 12.2 % (11.5-14.5); Segmented Neutrophils % 77.8 %
[2017-08-27 18:00] LABS: Hemoglobin 12.9 g/dL (12.9-16.9)
[2017-08-27] MEDS ORDERED: Thiamine (B-1) 100 MG, Folic Acid 1 MG, MVI, adult with vitamin K 10 ML in 0.9 % Sodi... IVPB SCH (18:00)
[2017-08-27 18:06] LABS: INR 1.1; Prothrombin Time 12.1 Seconds (9.4-12.1)
--- NOTE | 2017-08-27 18:07 | Anesthesia Evaluation Post Op ---
Date of Encounter: 08/27/17 Time of Encounter: 18:05 - Vital Signs Vital Signs: Vital Signs/O2 Sat, Most Current Temp Pulse Resp BP Pulse Ox 98.0 F 63 10 158/67 97 08/27/17 07:35 08/27/17 12:07 08/27/17 17:15 08/27/17 17:15 08/27/17 17:15 - Lungs Lungs: Clear Ascult./Percussion - Airway Airway: Intubated - Cardiovascular Regular Rate - Mental Status Mental Status: Sedated - Pain Pain Scale used: Nan (Faces) - Nausea Vomiting Nausea Vomiting: Not Present - Hydration Hydration: NPO - Discharge Attestation: patient in ICU in stable but critical condition
[2017-08-27 18:09] LABS: Activated Partial Thrombo Time 31.7 Seconds (26.0-36.0)
[2017-08-27] MEDS: Pantoprazole 40 MG VIAL IVP SCH (18:17)
[2017-08-27] MEDS: Ketorolac 15 MG/ML VIAL IVP SCH ×2 (18:17→23:53)
[2017-08-27 18:18] LABS: BUN/Creatinine Ratio 14 (6-26); Blood Urea Nitrogen 11 mg/dL (8-23); Calcium 9.3 mg/dL (8.6-10.3); Carbon Dioxide 26 mEq/L (23-29); Chloride 106 mEq/L (98-107); Glucose 103 mg/dL (70-105); Magnesium 2.9 mg/dL (1.6-2.6); Osmolality,Calculated 282 (280-300); Potassium 3.7 mEq/L (3.5-5.1); Sodium 136 mEq/L (136-145); eGFR For African Americans > 60 (> 60); eGFR For Non-African Americans > 60 (> 60)
[2017-08-27] MEDS: Metoclopramide 10 MG/2 ML VIAL IVP SCH ×2 (18:18→23:53)
[2017-08-27] MEDS: Folic Acid 1 MG TABLET PO SCH (18:18)
[2017-08-27] MEDS: niCARdipine 40 MG/200 ML MLS IVC SCH ×2 (18:20→23:53)
[2017-08-27] MEDS: Nitroglycerin 25 MG/250 ML INFUS..BTL IVC SCH (18:20)
[2017-08-27] MEDS ORDERED: 0.9 % Sodium Chloride 250 ML ONE (20:47)
[2017-08-27 21:12] LABS: ABG Base Excess 0 mEq/L (-2 to 3); ABG HCO3 26 mEq/L (21-27); ABG Oxygen Saturation 97 % (95-98); ABG PCO2 49 mmHg (35-45); ABG PH 7.34 pH Units (7.32-7.45); ABG PO2 92 mmHg (85-104); ABG TCO2 28 mEq/L (20-26); Blood Gas Modality CPAP/PS
[2017-08-27] MEDS: Chlorhexidine Rinse 15 ML MOUTHWASH MM SCH (21:34)
[2017-08-27] MEDS: ceFAZolin 2,000 MG in 0.9 % Sodium Chloride 100 ML IVPB SCH (22:11)
[2017-08-28 03:43] LABS: Basophils % 0.2 %; Hematocrit 36.7 % (37.5-50.1); Hemoglobin 12.3 g/dL (12.9-16.9); Immature Granulocytes % 0.3 % (0-4); Lymphocytes # 1.3 K/mcL (0.6-4.6); Lymphocytes % 10.3 %; Mean Corpuscular HGB Conc 33.5 g/dL (31.6-35.5); Mean Corpuscular Hemoglobin 31.6 pg (28.0-33.3); Mean Corpuscular Volume 94.3 fL (83.0-100.0); Mean Platelet Volume 10.6 fL (9.4-12.4); Monocytes # 1.1 K/mcL (0.0-1.3); Monocytes % 9.3 %; Neutrophils # 9.7 K/mcL (1.6-8.9); Platelet Count 122 K/mcL (140-400); Red Blood Count 3.89 M/mcL (4.19-5.50); Red Cell Distribution Width 12.6 % (11.5-14.5); Segmented Neutrophils % 79.9 %
[2017-08-28 03:44] LABS: INR 1.1; Prothrombin Time 11.3 Seconds (9.4-12.1)
[2017-08-28 03:47] LABS: Activated Partial Thrombo Time 32.2 Seconds (26.0-36.0)
[2017-08-28 03:55] LABS: BUN/Creatinine Ratio 12 (6-26); Blood Urea Nitrogen 12 mg/dL (8-23); Calcium 8.7 mg/dL (8.6-10.3); Carbon Dioxide 27 mEq/L (23-29); Chloride 107 mEq/L (98-107); Glucose 126 mg/dL (70-105); Magnesium 2.2 mg/dL (1.6-2.6); Osmolality,Calculated 285 (280-300); Potassium 4.8 mEq/L (3.5-5.1); Sodium 137 mEq/L (136-145); eGFR For African Americans > 60 (> 60); eGFR For Non-African Americans > 60 (> 60)
[2017-08-28] MEDS: Ketorolac 15 MG/ML VIAL IVP SCH ×3 (04:44→17:27)
[2017-08-28] MEDS: Metoclopramide 10 MG/2 ML VIAL IVP SCH ×3 (04:45→17:26)
[2017-08-28 04:55] LABS: ABG Base Excess -1 mEq/L (-2 to 3); ABG HCO3 25 mEq/L (21-27); ABG Oxygen Saturation 96 % (95-98); ABG PCO2 43 mmHg (35-45); ABG PH 7.37 pH Units (7.32-7.45); ABG PO2 83 mmHg (85-104); ABG TCO2 26 mEq/L (20-26)
[2017-08-28] MEDS ORDERED: Furosemide 20 MG/2 ML VIAL IVP SCH (08:00)
[2017-08-28] MEDS: Multivit/Ca/Min/Fe/FA 1 TAB TABLET PO SCH (08:05)
[2017-08-28] MEDS: Folic Acid 1 MG TABLET PO SCH (08:06)
[2017-08-28] MEDS: Vitamin B Complex/Vit C/Vit E 1 EACH TABLET PO SCH (08:06)
[2017-08-28] MEDS: Nitroglycerin 25 MG/250 ML INFUS..BTL IVC SCH (08:06)
[2017-08-28] MEDS: (Omega-3/Dha/Epa/Fish Oil [Fish Oil 1,000 Mg Softgel] PO SCH (08:06)
[2017-08-28] MEDS: Chlorhexidine Rinse 15 ML MOUTHWASH MM SCH (08:06)
[2017-08-28] MEDS: Pantoprazole 40 MG VIAL IVP SCH (08:06)
[2017-08-28] MEDS: niCARdipine 40 MG/200 ML MLS IVC SCH (08:07)
--- NOTE | 2017-08-28 08:28 | Cardiothoracic Progress Note ---
Date of Encounter: 08/28/17 Time of Encounter: 08:25 - Assessment and plan (1) NSTEMI (non-ST elevated myocardial infarction) Current Visit: Yes Status: Acute The patient is recovering well from his CABG 3. He remained hemodynamically stable overnight. The arterial line, Leung catheter, and Alton-Manohar catheter be removed. He will be transferred to the stepdown unit when a bed is available. The assessment and plan as outlined above was discussed with the patient and/or family members who expressed understanding and agreement. All questions were answered. - Subjective Procedure(s) Performed: POD#1 S/P CABG3 Interval history: The patient remained hemodynamically stable overnight. He is extubated and breathing comfortably. He has been able to sit in a chair at the bedside twice since he was extubated. He has no complaints. Vital Signs, Last 4 Hours Temp Pulse Resp BP Pulse Ox 08/28/17 06:00 98.6 F 85 24 101/36 98 08/28/17 05:00 98.6 F 87 12 83/55 93 Oxgyen Flow Rate Oxygen Flow Rate (LPM) 4 Clinical Data, last 8 Hours Output, Chest Tube Drainage 0 Amount [Mediastinal #2] Output, Chest Tube Drainage 8 Amount [Mediastinal #2] Output, Chest Tube Drainage 0 Amount [Mediastinal #2] Output, Chest Tube Drainage 0 Amount [Mediastinal #2] Output, Chest Tube Drainage 0 Amount [Mediastinal #2] Output, Chest Tube Drainage 0 Amount [Mediastinal #2] Output, Chest Tube Drainage 0 Amount [Mediastinal #2] Output, Chest Tube Drainage 30 Amount [Mediastinal #1] Output, Chest Tube Drainage 46 Amount [Mediastinal #1] Output, Chest Tube Drainage 24 Amount [Mediastinal #1] Output, Chest Tube Drainage 24 Amount [Mediastinal #1] Output, Chest Tube Drainage 20 Amount [Mediastinal #1] Output, Chest Tube Drainage 20 Amount [Mediastinal #1] Weight 08/26/17 08/27/17 08/28/17 23:59 23:59 23:59 Weight 84.4 kg - Physical Examination General: Conversant, No Apparent Distress Neck: No JVD, Normal carotid pulses Cardiac: Reg Rate and Rhythm, Normal S1 and S2, No Murmur Incision: No signs of infection, Dry/intact dressing Sternum: Stable Chest tubes: Minimal drainage, Other (No air leak) Pacing Wires: In place Lungs: Normal Breath Sounds, No Wheeze, Rales, Rhonchi Neuro: Alert and responsive, No focal deficits noted Vascular: Normal capillary refill Musculoskeletal: No Chest Wall Tenderness Extremities: No Clubbing, No Cyanosis, No Edema - Labs 08/28/17 03:21 08/28/17 03:21 Lab Results, Last 24 hours 08/27/17 08/27/17 08/27/17 10:03 10:03 17:04 WBC 8.7 13.3 H D Hgb 14.7 12.9 D Hct 43.1 37.1 L Plt Count 175 110 L INR APTT Sodium 138 Potassium 3.9 Chloride 104 Carbon Dioxide 27 BUN 12 Creatinine 0.78 Glucose 123 H Calcium 9.1 Magnesium 08/27/17 08/27/17 08/28/17 17:04 17:04 03:21 WBC 12.2 H Hgb 12.3 L Hct 36.7 L Plt Count 122 L INR 1.1 APTT 31.7 D Sodium 136 Potassium 3.7 Chloride 106 Carbon Dioxide 26 BUN 11 Creatinine 0.78 Glucose 103 Calcium 9.3 Magnesium 2.9 H 08/28/17 08/28/17 03:21 03:21 WBC Hgb Hct Plt Count INR 1.1 APTT 32.2 Sodium 137 Potassium 4.8 D Chloride 107 Carbon Dioxide 27 BUN 12 Creatinine 0.97 Glucose 126 H Calcium 8.7 Magnesium 2.2 - Imaging Chest Xray: image reviewed (No pneumothorax. Bibasilar atelectasis. Small left pleural effusion.) - VTE Documentation of Mechanical Device: Graduated compression elastic hosiery Consult Discharge Plan - Plan Referrals: Hank Brooks Jr, MD [Primary Care Provider] -
[2017-08-28] MEDS ORDERED: Aspirin Enteric Coated 81 MG Tablet PO SCH (09:00)
[2017-08-28] MEDS: ceFAZolin 2,000 MG in 0.9 % Sodium Chloride 100 ML IVPB SCH (10:20)
[2017-08-28] MEDS ORDERED: Acetaminophen 325 MG TABLET PO PRN (10:55)
[2017-08-28] MEDS ORDERED: Ondansetron 4 MG/2 ML VIAL IVP PRN (10:55)
[2017-08-28] MEDS ORDERED: Naloxone 0.4 MG/ML INJ IVP PRN (10:55)
[2017-08-28] MEDS ORDERED: Dextrose Gel 15 GM/37.5 ML TUBE PO PRN ×2 (10:55)
[2017-08-28] MEDS ORDERED: *HR* FentaNYL (PF) 100 MCG/2 ML VIAL IVP PRN (10:55)
[2017-08-28] MEDS ORDERED: *HR* Dextrose 50 % in Water (Syg) 50 ML SYRINGE IVP PRN (10:55)
[2017-08-28] MEDS ORDERED: *HR* OxyCODONE/APAP 5/325 TABLET PO PRN (10:55)
[2017-08-28] MEDS ORDERED: Nitroglycerin 0.4 MG TAB.SUBL SL PRN (10:55)
[2017-08-28] MEDS ORDERED: Insulin Regular, Human 100 UNIT/ML IV PRN (10:55)
[2017-08-28] MEDS ORDERED: D5% in Water 1,000 ML IVC PRN (10:55)
[2017-08-28] MEDS ORDERED: Insulin Human Regular 100 UNIT in 0.9 % Sodium Chloride 100 ML IVC SCH (10:55)
[2017-08-28] MEDS: *HR* Heparin 5,000 UNIT/ML VIAL SQ SCH ×2 (11:36→17:26)
[2017-08-28] MEDS: GARLIC 400 MG PO SCH (11:37)
[2017-08-28] MEDS: Nicotine 21 MG PATCH.TD24 TD SCH (11:37)
[2017-08-28] MEDS: Insulin LISPRO 300 UNITS/3 ML VIAL SQ SCH ×2 (16:14→20:26)
[2017-08-28] MEDS: Furosemide 20 MG/2 ML VIAL IVP SCH (17:27)
[2017-08-28] MEDS: Thiamine (B-1) 100 MG, Folic Acid 1 MG, MVI, adult with vitamin K 10 ML in 0.9 % Sodi... IVPB SCH (17:28)
--- NOTE | 2017-08-28 18:26 | Electrocardiograph Report ---
[address] [address] Test Date: 2017-08-27 Pat Name: Sánchez Jimenez Department: 109 Room: 2N02 Gender: M Ham Trimmer: : 1940 Requested By: Aidee Gutierrez Order Number: [id number] Reading MD: J Luis Landaverde Measurements Intervals [place] Rate: 79 P: 56 PA: 185 QRS: 68 QRSD: 120 T: 70 QT: 398 QTc: 432 Interpretive Statements SINUS RHYTHM Electronically Signed On 08-28-2017 18:25:07 EDT by J Luis Landaverde
[2017-08-29] MEDS: Ketorolac 15 MG/ML VIAL IVP SCH ×4 (00:19→16:34)
[2017-08-29] MEDS: Metoclopramide 10 MG/2 ML VIAL IVP SCH ×4 (00:19→16:34)
[2017-08-29] MEDS: *HR* Heparin 5,000 UNIT/ML VIAL SQ SCH ×2 (06:24→16:34)
--- NOTE | 2017-08-29 07:29 | Cardiothoracic Progress Note ---
Date of Encounter: 08/29/17 Time of Encounter: 07:27 - Assessment and plan (1) CAD (coronary artery disease), [place] coronary artery Current Visit: Yes Status: Chronic The assessment and plan as outlined above was discussed with the patient and/or family members who expressed understanding and agreement. All questions were answered. We will check a stat portable chest x-ray. We will offer the patient 2 beers at night with dinner to help prevent withdrawal. We will continue to monitor his neurological status. Qualifiers: [place] vs. transplanted heart: [place] heart Associated angina: with stable angina Qualified Code(s): I25.118 - Atherosclerotic heart disease of [place] coronary artery with other forms of angina pectoris - Subjective Interval history: The patient and his daughter states that he has been seeing some moving objects. He has been having some mild hallucinations. He did drink a lot of beer at home and is on a protocol to prevent withdrawal. He does know that he is an [facility] and that the month is August. Vital Signs, Last 4 Hours Temp Pulse Resp BP Pulse Ox 08/29/17 05:10 97.6 F 90 18 126/63 93 Oxgyen Flow Rate Oxygen Flow Rate (LPM) 2 Clinical Data, last 8 Hours Output, Chest Tube Drainage 0 Amount [Mediastinal #2] Output, Chest Tube Drainage 115 Amount [Mediastinal #1] Weight 08/27/17 08/28/17 08/29/17 23:59 23:59 23:59 Weight 84.4 kg 96 kg Lungs are clear to percussion and auscultation. Heart is in a normal sinus rhythm. All incisions are healing well without signs of infection and the sternum is stable. Chest tube drainage is minimal and there is no air leak. Chest tubes and pacing wires were removed. Grossly, he is neurologically intact and I am unable to detect any motor or sensory deficits. - Labs 08/28/17 03:21 08/28/17 03:21 - VTE Documentation of Mechanical Device: Graduated compression elastic hosiery Consult Discharge Plan - Plan Referrals: J Luis Landaverde MD [Partnered Physician] - (office will call patient at home with follow up ) Heydi Gutierrez MD [Partnered Physician] - 09/27/17 1:00 pm Hank Brooks Jr, MD [Primary Care Provider] -
[2017-08-29] MEDS: Insulin LISPRO 300 UNITS/3 ML VIAL SQ SCH ×4 (08:21→20:39)
[2017-08-29] MEDS: Folic Acid 1 MG TABLET PO SCH (08:40)
[2017-08-29] MEDS: Vitamin B Complex/Vit C/Vit E 1 EACH TABLET PO SCH (08:40)
[2017-08-29] MEDS: Multivit/Ca/Min/Fe/FA 1 TAB TABLET PO SCH (08:40)
[2017-08-29] MEDS: Aspirin Enteric Coated 81 MG Tablet PO SCH (08:40)
[2017-08-29] MEDS: Nicotine 21 MG PATCH.TD24 TD SCH (08:40)
[2017-08-29] MEDS: Pantoprazole 40 MG VIAL IVP SCH (08:41)
[2017-08-29] MEDS: GARLIC 400 MG PO SCH (08:42)
[2017-08-29] MEDS: Furosemide 20 MG/2 ML VIAL IVP SCH ×2 (08:42→16:34)
[2017-08-29] MEDS: Thiamine (B-1) 100 MG, Folic Acid 1 MG, MVI, adult with vitamin K 10 ML in 0.9 % Sodi... IVPB SCH (16:33)
[2017-08-29] MEDS: Beer can PO PRN (20:37)
[2017-08-30] MEDS: Metoclopramide 10 MG/2 ML VIAL IVP SCH ×4 (00:31→17:29)
[2017-08-30] MEDS: Ketorolac 15 MG/ML VIAL IVP SCH ×4 (00:31→17:29)
[2017-08-30] MEDS: *HR* Heparin 5,000 UNIT/ML VIAL SQ SCH ×2 (05:34→17:29)
[2017-08-30 05:58] LABS: Basophils % 0.2 %; Eosinophils # 0.1 K/mcL (0.0-0.6); Eosinophils % 1.4 %; Hematocrit 33.9 % (37.5-50.1); Hemoglobin 11.4 g/dL (12.9-16.9); Immature Granulocytes % 0.4 % (0-4); Lymphocytes # 1.2 K/mcL (0.6-4.6); Lymphocytes % 14.4 %; Mean Corpuscular HGB Conc 33.6 g/dL (31.6-35.5); Mean Corpuscular Hemoglobin 31.6 pg (28.0-33.3); Mean Corpuscular Volume 93.9 fL (83.0-100.0); Monocytes # 0.9 K/mcL (0.0-1.3); Monocytes % 10.7 %; Neutrophils # 6.1 K/mcL (1.6-8.9); Platelet Count 128 K/mcL (140-400); Red Blood Count 3.61 M/mcL (4.19-5.50); Red Cell Distribution Width 12.6 % (11.5-14.5); Segmented Neutrophils % 72.9 %
[2017-08-30 06:13] LABS: BUN/Creatinine Ratio 24 (6-26); Blood Urea Nitrogen 19 mg/dL (8-23); Calcium 8.5 mg/dL (8.6-10.3); Carbon Dioxide 27 mEq/L (23-29); Chloride 107 mEq/L (98-107); Glucose 121 mg/dL (70-105); Osmolality,Calculated 292 (280-300); Potassium 3.4 mEq/L (3.5-5.1); Sodium 139 mEq/L (136-145); eGFR For African Americans > 60 (> 60); eGFR For Non-African Americans > 60 (> 60)
--- NOTE | 2017-08-30 06:31 | Cardiothoracic Progress Note ---
Date of Encounter: 08/30/17 Time of Encounter: 06:30 - Assessment and plan (1) NSTEMI (non-ST elevated myocardial infarction) Current Visit: Yes Status: Acute The patient is recovering well from his CABG 3. He will continue ambulating today. The assessment and plan as outlined above was discussed with the patient and/or family members who expressed understanding and agreement. All questions were answered. - Subjective Procedure(s) Performed: POD#3 S/P CABG3 Interval history: The patient remained hemodynamically stable overnight. He was able to walk in the room yesterday without difficulty. He has no complaints. Vital Signs, Last 4 Hours Temp Pulse Resp BP Pulse Ox 08/30/17 05:12 98.1 F 86 19 137/68 95 08/30/17 04:00 98.1 F 86 19 137/68 95 Oxgyen Flow Rate Oxygen Flow Rate (LPM) 2 Weight 08/28/17 08/29/17 08/30/17 23:59 23:59 23:59 Weight 96 kg - Physical Examination General: Conversant, No Apparent Distress Neck: No JVD, Normal carotid pulses Cardiac: Reg Rate and Rhythm, Normal S1 and S2, No Murmur Incision: No signs of infection, Dry/intact dressing Sternum: Stable Lungs: Normal Breath Sounds, No Wheeze, Rales, Rhonchi Neuro: Alert and responsive, No focal deficits noted Vascular: Normal capillary refill Extremities: No Clubbing, No Cyanosis, No Edema - Labs 08/30/17 05:19 08/30/17 05:19 Lab Results, Last 24 hours 08/30/17 08/30/17 05:19 05:19 WBC 8.4 Hgb 11.4 L Hct 33.9 L Plt Count 128 L Sodium 139 Potassium 3.4 L Chloride 107 Carbon Dioxide 27 BUN 19 Creatinine 0.78 Glucose 121 H Calcium 8.5 L - VTE Documentation of Mechanical Device: Graduated compression elastic hosiery Consult Discharge Plan - Plan Referrals: J Luis Landaverde MD [Partnered Physician] - (office will call patient at home with follow up ) Heydi Gutierrez MD [Partnered Physician] - 09/27/17 1:00 pm Hank Brooks Jr, MD [Primary Care Provider] -
[2017-08-30] MEDS: Aspirin Enteric Coated 81 MG Tablet PO SCH (07:40)
[2017-08-30] MEDS: Pantoprazole 40 MG VIAL IVP SCH (07:40)
[2017-08-30] MEDS: Furosemide 20 MG/2 ML VIAL IVP SCH ×2 (07:40→17:29)
[2017-08-30] MEDS: Multivit/Ca/Min/Fe/FA 1 TAB TABLET PO SCH (07:40)
[2017-08-30] MEDS: Vitamin B Complex/Vit C/Vit E 1 EACH TABLET PO SCH (07:40)
[2017-08-30] MEDS: Nicotine 21 MG PATCH.TD24 TD SCH (07:41)
[2017-08-30] MEDS: Folic Acid 1 MG TABLET PO SCH (07:41)
[2017-08-30] MEDS: Insulin LISPRO 300 UNITS/3 ML VIAL SQ SCH ×4 (11:47→20:50)
[2017-08-30] MEDS: Beer can PO PRN (20:51)
[2017-08-31] MEDS: Ketorolac 15 MG/ML VIAL IVP SCH ×2 (00:06→06:36)
[2017-08-31] MEDS: *HR* Heparin 5,000 UNIT/ML VIAL SQ SCH (06:36)
[2017-08-31 07:03] VITALS: BP 134/64
[2017-08-31] MEDS: Insulin LISPRO 300 UNITS/3 ML VIAL SQ SCH (08:14)
[2017-08-31] MEDS: Vitamin B Complex/Vit C/Vit E 1 EACH TABLET PO SCH (08:21)
[2017-08-31] MEDS: Multivit/Ca/Min/Fe/FA 1 TAB TABLET PO SCH (08:21)
[2017-08-31] MEDS: Aspirin Enteric Coated 81 MG Tablet PO SCH (08:21)
[2017-08-31] MEDS: Folic Acid 1 MG TABLET PO SCH (08:21)
[2017-08-31] MEDS: Pantoprazole 40 MG VIAL IVP SCH (08:22)
[2017-08-31] MEDS: Nicotine 21 MG PATCH.TD24 TD SCH (08:22)
--- NOTE | 2017-08-31 09:37 | Discharge Summary ---
Orders not resulted at time of discharge: Pending orders 08/27/17 12:06 MRSA Surveillance Screen [MOLMIC] Stat 08/27/17 12:56 Red Blood Cells [BBK] Stat Type and Screen [BBK] Stat Date of Encounter: 08/31/17 Time of Encounter: 09:32 - Discharge Diagnosis (1) CAD (coronary artery disease), [place] coronary artery Priority: Primary Status: Chronic Qualifiers: [place] vs. transplanted heart: [place] heart Associated angina: with stable angina Qualified Code(s): I25.118 - Atherosclerotic heart disease of [place] coronary artery with other forms of angina pectoris - Hospital Course Hospital course: Mr. Jimenez is a 77 year old male The patient has a history of hypertension and hypercholesterolemia. He presented with a myocardial infarction. Cardiac catheterization revealed severe coronary artery disease and he was referred for surgery. On 08/27/2017, Dr. Gutierrez took the patient to the operating room for coronary artery bypass grafting 3, utilizing the left internal mammary artery. On August 28 the patient was transferred to the floor. Chest tubes were removed. Chest x-ray revealed no pneumothorax. On August 29, he had mild confusion. He did have a history of heavy beer drinking and was on appropriate precautions for alcohol withdrawal. The patient was neurologically intact and his confusion resolved. The patient otherwise did well and was discharged on August 31. At that time, he was afebrile. Lungs were clear to percussion and auscultation. Heart was in a normal sinus rhythm. All incisions were healing well without signs of infection and the sternum was stable. Discharge medications are on the med rec and do include narcotics for pain. Appropriate precautions were given. He was postoperative and was given a one-week supply. He was told not to drink or drive while on pain medication. I did check the [place] automated Rx reporting system. He was to return to his previous a regular diet. He was to avoid heavy lifting for a total of 3 months after surgery, but to walk as much as possible. He was to avoid driving for 1 month. He was to follow up and see Dr. Gutierrez in the office in 4 weeks as directed. He was to follow-up with his figure model and primary care doctor as directed. He was to call sooner for any difficulties. - Time Spent with Patient Total time spent providing and/or coordinating discharge services: - Discharge Medications Prescriptions: OxyCODONE/APAP 5/325 [Percocet 5/325 MG] 1 each PO Q4HR PRN 7 Days #20 tablet PRN Reason: Severe Pain Nicotine Patch [Nicoderm] 21 mg TD DAILY #14 patch.td24 Rosuvastatin [Crestor] 40 mg PO HS #30 tablet Home Medications: Aspirin [Adult Aspirin Regimen] 81 mg PO DAILY 08/24/17 [History] Atorvastatin Calcium [Lipitor] 20 mg PO QPM 08/24/17 [History] Garlic [Daily Garlic Once-A-Day] 400 mg PO DAILY 08/24/17 [History] Metoprolol Succinate [Toprol Xl] 12.5 mg PO DAILY 08/24/17 [History] Multivit-Min/FA/Lycopen/Lutein [Centrum Silver Men Tablet] 1 tab PO DAILY [History] [place]-3/Dha/Epa/Fish Oil [Fish Oil 1,000 mg Softgel] 1,000 mg PO DAILY 08/24/17 [History] Vitamin B Complex Vit C No.4 [Super B Complex] 150 mg PO DAILY 08/24/17 [History ] Nicotine Patch [Nicoderm] 21 mg TD DAILY #14 patch.td24 08/31/17 [Rx] OxyCODONE/APAP 5/325 [Percocet 5/325 MG] 1 each PO Q4HR PRN 7 Days #20 tablet [Rx] Rosuvastatin [Crestor] 40 mg PO HS #30 tablet 08/31/17 [Rx] Allergies/Adverse Reactions: 3 Allergy/AdvReac Type Severity Reaction Status Date / Time No Known Allergies Allergy Verified 08/24/17 08:45 Date of admission: 08/26/17 18:04 Primary care physician: Hank Brooks Jr, MD Consults: 08/29/17 09:28 Consult to Occupational Therapy [CONS] Routine Comment: Evaluate, develop and implement POC Reason for Consult: CABG, weakness Does patient have active BEDREST order?: No Is patient medically & hemodynamically stable?: Yes Patient assessed for mobility or mobilized this visit?: Yes Consult to Physical Therapy [CONS] Routine Comment: Evaluate, develop and implement POC Reason for Consult: CABG, weakness Does patient have active BEDREST order?: No Is patient medically & hemodynamically stable?: Yes Patient assessed for mobility or mobilized this visit?: Yes Consult to Flight Operations Manager [CONS] Routine Reason for SW Consult: CABG Procedure(s) Performed: 08/27/2017. Coronary artery bypass grafting 3, utilizing the left internal mammary artery. Discharging clinician: Geo Romero Anticipated date of discharge: 08/31/17 Physical Examination Vital Signs, Last 4 Hours Temp Pulse Resp BP Pulse Ox 08/31/17 08:28 79 08/31/17 06:59 98.1 F 81 18 134/64 100 - Patient Status Disposition: Home, Self-Care Condition: Good Functional capacity at discharge: independent ambulation Overall status at discharge: patient is progressing back to baseline - Discharge Instructions Follow Up With: J Luis Landaverde MD [Partnered Physician] - (office will call patient at home with follow up ) Heydi Gutierrez MD [Partnered Physician] - 09/27/17 1:00 pm Hank Brooks Jr, MD [Primary Care Provider] - Open Heart Registry Aspirin Cont/Prescribed at DC: Yes Beta Mounika Cont/Prescribed at DC: Yes Statin Cont/Prescribed at DC: Yes HELEN/ARB Cont/Prescribed at DC: Not indicated - VTE Documentation of Mechanical Device: Graduated compression elastic hosiery
--- NOTE | 2017-08-31 13:38 | Physician Discharge Referral ---
Home Health/Hosp Referral Info Transfer to: Home Health - Diagnosis (1) CAD (coronary artery disease), [place] coronary artery Priority: Primary Status: Chronic - Respiratory Orders Smoking Cessation: Smoking cessation has been advised. For more information, call the [place] Tobacco Quit Line at 6-702-EGPB-NOW. - Diet/Nutrition Diet/Nutrition Orders: Regular - Activity Activity Orders: Up ad kevin, Ambulate, Chair - Services Needed Following services are medically necessary services: Home Health Aide, Physical Therapy - Transfer Medications Prescriptions: OxyCODONE/APAP 5/325 [Percocet 5/325 MG] 1 each PO Q4HR PRN 7 Days #20 tablet PRN Reason: Severe Pain Nicotine Patch [Nicoderm] 21 mg TD DAILY #14 patch.td24 Rosuvastatin [Crestor] 40 mg PO HS #30 tablet Home Medications: Aspirin [Adult Aspirin Regimen] 81 mg PO DAILY 08/24/17 [History] Atorvastatin Calcium [Lipitor] 20 mg PO QPM 08/24/17 [History] Garlic [Daily Garlic Once-A-Day] 400 mg PO DAILY 08/24/17 [History] Metoprolol Succinate [Toprol Xl] 12.5 mg PO DAILY 08/24/17 [History] Multivit-Min/FA/Lycopen/Lutein [Centrum Silver Men Tablet] 1 tab PO DAILY [History] [place]-3/Dha/Epa/Fish Oil [Fish Oil 1,000 mg Softgel] 1,000 mg PO DAILY 08/24/17 [History] Vitamin B Complex Vit C No.4 [Super B Complex] 150 mg PO DAILY 08/24/17 [History ] Nicotine Patch [Nicoderm] 21 mg TD DAILY #14 patch.td24 08/31/17 [Rx] OxyCODONE/APAP 5/325 [Percocet 5/325 MG] 1 each PO Q4HR PRN 7 Days #20 tablet [Rx] Rosuvastatin [Crestor] 40 mg PO HS #30 tablet 08/31/17 [Rx] Allergies/Adverse Reactions: 3 Allergy/AdvReac Type Severity Reaction Status Date / Time No Known Allergies Allergy Verified 08/24/17 08:45 Certification: Further, I certify that my clinical findings support that this patient is homebound (i.e. absences from home require considerable and taxing effort and are for medical reasons or baptism services or infrequently or short duration when for other reasons) because: Homebound Reason: Post-surgery restriction and or conditions limit ability to leave home Attestation: My signature below is to certify that this patient is under my care and that I, or nurse practitioner, or a physician's claims assistant working with me, has a face-to -face encounter with this patient.
== END 2017-08-31 11:34 | disposition home or self-care (01) | DRG 234 ==
LOC: EMEROO 07:54 → 3NENU 07:54 → SUATTDRO 12:28 → 3NENU 12:48 → ICNU 08-27 11:48 → 2NNU 08-28 12:19
PROVIDERS: ADMIT Family Medicine; ATTEND Hospitalist

== ENCOUNTER 2020-03-14 13:26 | Inpatient (IN) ==
[2020-03-14] MEDS ORDERED: Ipratropium/Albuterol Neb 3 ML IH ONE (13:51)
[2020-03-14 14:18] LABS: Basophils % 0.1 %; Hematocrit 38.5 % (37.5-50.1); Hemoglobin 12.9 g/dL (12.9-16.9); Immature Granulocytes % 0.9 % (0-4); Lymphocytes % 6.9 %; Mean Corpuscular HGB Conc 33.5 g/dL (31.6-35.5); Mean Corpuscular Hemoglobin 30.8 pg (28.0-33.3); Mean Corpuscular Volume 91.9 fL (83.0-100.0); Mean Platelet Volume 10.2 fL (9.4-12.4); Monocytes % 6.8 %; Neutrophils # 12.5 K/mcL (1.6-8.9); Platelet Count 295 K/mcL (140-400); Red Blood Count 4.19 M/mcL (4.19-5.50); Segmented Neutrophils % 85.3 %; White Blood Count 14.7 K/mcL (4.3-11.1)
[2020-03-14 14:41] LABS: Alanine Aminotransferase 27 Units/L (7-52); Albumin 3.5 g/dL (3.5-5.7); Albumin/Globulin Ratio 0.9 (1.1-2.2); Alkaline Phosphatase 73 Units/L (34-104); Aspartate Amino Transferase 45 Units/L (13-39); BUN/Creatinine Ratio 15 (6-26); Bilirubin,Direct 0.5 mg/dL (0.0-0.2); Bilirubin,Indirect 0.8 mg/dL (0.0-1.0); Bilirubin,Total 1.3 mg/dL (0.3-1.0); Blood Urea Nitrogen 14 mg/dL (8-23); Calcium 8.9 mg/dL (8.6-10.3); Carbon Dioxide 26 mEq/L (23-29); Chloride 93 mEq/L (98-107); Globulin 3.8 g/dL (2.4-3.5); Glucose 181 mg/dL (70-105); Lipase 36 Units/L (11-82); Osmolality,Calculated 277 (280-300); Sodium 131 mEq/L (136-145); Total Protein 7.3 g/dL (6.4-8.9); Troponin I 0.05 ng/mL (< 0.04); eGFR For African Americans > 60 (> 60); eGFR For Non-African Americans > 60 (> 60)
[2020-03-14 14:47] LABS: INR 1.1; Prothrombin Time 13.2 Seconds (9.4-12.1)
[2020-03-14 14:50] LABS: Activated Partial Thrombo Time 26.9 Seconds (26.0-36.0)
[2020-03-14] MEDS ORDERED: Isovue-370 500 ML BOTTLE IVP ONE (14:55)
[2020-03-14] MEDS ORDERED: Aspirin 81 MG TAB.CHEW PO ONE (14:56)
[2020-03-14 15:04] LABS: Adenovirus Not Detected (Not Detect); Coronavirus 229E Not Detected (Not Detect); Coronavirus HKU1 Not Detected (Not Detect); Coronavirus NL63 Not Detected (Not Detect); Coronavirus OC43 Not Detected (Not Detect)
[2020-03-14 15:05] LABS: Bordetella Pertussis Not Detected (Not Detect); Chlamydophila pneumoniae Not Detected (Not Detect); Human Metapneumovirus Not Detected (Not Detect); Human Rhinovirus/Enterovirus Not Detected (Not Detect); Influenza A Subtype 2009 H1 Not Detected (Not Detect); Influenza B Not Detected (Not Detect); Mycoplasma pneumoniae Not Detected (Not Detect); Parainfluenza Virus 1 Not Detected (Not Detect); Parainfluenza Virus 2 Not Detected (Not Detect); Parainfluenza Virus 3 Not Detected (Not Detect); Parainfluenza Virus 4 Not Detected (Not Detect); Respiratory Syncytial Virus Not Detected (Not Detect); SARS-CoV-2 DETECTED (Not Detect)
[2020-03-14 15:06] LABS: Magnesium 1.9 mg/dL (1.6-2.6)
[2020-03-14] MEDS ORDERED: Dexamethasone 4 MG/ML VIAL IVP ONE (15:12)
[2020-03-14] MEDS ORDERED: 0.9 % Sodium Chloride 1,000 ML IVC ONE ×2 (15:16→18:40)
[2020-03-14] MEDS ORDERED: 0.9 % Sodium Chloride 500 ML IVC ONE (15:17)
[2020-03-14] MEDS ORDERED: Acetaminophen 325 MG TABLET PO ONE (15:36)
[2020-03-14 16:02] LABS: VBG HCO3 28 mEq/L (21-27); VBG PCO2 45 mmHg (41-51); VBG PO2 28 mmHg (25-50)
[2020-03-14] MEDS ORDERED: Naloxone 0.4 MG/ML INJ IVP PRN (17:46)
[2020-03-14] MEDS ORDERED: Acetaminophen 325 MG TABLET PO PRN (17:46)
[2020-03-14] MEDS ORDERED: Ondansetron 4 MG/2 ML VIAL IVP PRN (17:46)
[2020-03-14] MEDS ORDERED: *HR* LORazepam 2 MG/ML VIAL IVP PRN ×2 (17:52)
[2020-03-14] MEDS: Vitamin B Complex/Vit C/Vit E 1 EACH TABLET PO SCH (20:32)
[2020-03-14] MEDS: Folic Acid 1 MG TABLET PO SCH (20:32)
[2020-03-14] MEDS: Thiamine (B-1) 100 MG TABLET PO SCH (20:35)
[2020-03-14] MEDS: cefTRIAXone 1,000 MG in Water for inj. (sterile) 10 ML IVP SCH (20:35)
[2020-03-15 04:32] LABS: Hematocrit 36.5 % (37.5-50.1); Hemoglobin 11.8 g/dL (12.9-16.9); Mean Corpuscular HGB Conc 32.3 g/dL (31.6-35.5); Mean Corpuscular Hemoglobin 29.8 pg (28.0-33.3); Mean Corpuscular Volume 92.2 fL (83.0-100.0); Mean Platelet Volume 10.4 fL (9.4-12.4); Platelet Count 284 K/mcL (140-400); Red Blood Count 3.96 M/mcL (4.19-5.50); Red Cell Distribution Width 12.3 % (11.5-14.5); White Blood Count 13.1 K/mcL (4.3-11.1)
[2020-03-15 04:46] LABS: INR 1.1; Prothrombin Time 13.2 Seconds (9.4-12.1)
[2020-03-15 04:53] LABS: BUN/Creatinine Ratio 19 (6-26); Blood Urea Nitrogen 15 mg/dL (8-23); Calcium 8.5 mg/dL (8.6-10.3); Carbon Dioxide 25 mEq/L (23-29); Chloride 101 mEq/L (98-107); Glucose 192 mg/dL (70-105); Osmolality,Calculated 286 (280-300); Phosphorous 3.1 mg/dL (2.7-4.5); Potassium 4.2 mEq/L (3.5-5.1); Sodium 135 mEq/L (136-145); eGFR For African Americans > 60 (> 60); eGFR For Non-African Americans > 60 (> 60)
[2020-03-15] MEDS: *HR* Enoxaparin 40 MG/0.4 ML SYRINGE SQ SCH (05:16)
[2020-03-15] MEDS: Thiamine (B-1) 100 MG TABLET PO SCH (09:30)
[2020-03-15] MEDS: cefTRIAXone 1,000 MG in Water for inj. (sterile) 10 ML IVP SCH (09:30)
[2020-03-15] MEDS: Metoprolol XL (24 HR) Succ 25 MG TAB.ER.24H PO SCH (09:30)
[2020-03-15] MEDS: Aspirin Enteric Coated 81 MG Tablet PO SCH (09:30)
[2020-03-15] MEDS: Dexamethasone 4 MG/ML VIAL IVP SCH (09:30)
[2020-03-15] MEDS: Folic Acid 1 MG TABLET PO SCH (09:30)
[2020-03-15] MEDS: Vitamin B Complex/Vit C/Vit E 1 EACH TABLET PO SCH (09:30)
[2020-03-15] MEDS ORDERED: *HR* Dextrose 50 % in Water (Vial) 50 ML VIAL IVP PRN (19:57)
[2020-03-15] MEDS ORDERED: D5% in Water 1,000 ML IVC PRN (19:57)
[2020-03-15] MEDS ORDERED: Dextrose Gel 15 GM/37.5 ML TUBE PO PRN ×2 (19:57)
[2020-03-15] MEDS: Insulin LISPRO 300 UNITS/3 ML VIAL SUBQ SCH (20:31)
[2020-03-15 21:43] LABS: Bilirubin,Urine Negative (Negative); Blood,Urine Negative (Negative); Clarity,Urine Clear (Clear); Color,Urine Yellow (Yellow); Glucose,Urine (UA) Normal (Normal); Ketones,Urine Trace mg/dL (Negative); Leukocyte Esterase,Urine Negative (Negative); Mucus,Urine Few per lpf (None-Few); Nitrite,Urine Negative (Negative); PH,Urine 6.5 pH Units (5.0-8.0); Protein,Urine 30 mg/dL (Neg-Trace); Specific Gravity,Urine > 1.030 (1.010-1.025); Urobilinogen,Urine Normal (Normal); WBC,Urine 0-3 per hpf (0-3)
[2020-03-16 04:55] LABS: Hemoglobin 12.1 g/dL (12.9-16.9); Mean Corpuscular HGB Conc 33.6 g/dL (31.6-35.5); Mean Corpuscular Hemoglobin 30.6 pg (28.0-33.3); Mean Corpuscular Volume 90.9 fL (83.0-100.0); Mean Platelet Volume 10.7 fL (9.4-12.4); Platelet Count 317 K/mcL (140-400); Red Blood Count 3.96 M/mcL (4.19-5.50); Red Cell Distribution Width 11.9 % (11.5-14.5); White Blood Count 14.7 K/mcL (4.3-11.1)
[2020-03-16 05:17] LABS: BUN/Creatinine Ratio 32 (6-26); Blood Urea Nitrogen 25 mg/dL (8-23); Calcium 8.9 mg/dL (8.6-10.3); Carbon Dioxide 26 mEq/L (23-29); Chloride 102 mEq/L (98-107); Glucose 209 mg/dL (70-105); Osmolality,Calculated 295 (280-300); Potassium 3.6 mEq/L (3.5-5.1); Sodium 137 mEq/L (136-145); eGFR For African Americans > 60 (> 60); eGFR For Non-African Americans > 60 (> 60)
[2020-03-16] MEDS: *HR* Enoxaparin 40 MG/0.4 ML SYRINGE SQ SCH (05:30)
[2020-03-16] MEDS: Insulin LISPRO 300 UNITS/3 ML VIAL SUBQ SCH ×4 (08:12→20:32)
[2020-03-16] MEDS: cefTRIAXone 1,000 MG in Water for inj. (sterile) 10 ML IVP SCH (09:17)
[2020-03-16] MEDS: Metoprolol XL (24 HR) Succ 25 MG TAB.ER.24H PO SCH (09:20)
[2020-03-16] MEDS: Aspirin Enteric Coated 81 MG Tablet PO SCH (09:20)
[2020-03-16] MEDS: Vitamin B Complex/Vit C/Vit E 1 EACH TABLET PO SCH (09:20)
[2020-03-16] MEDS: Thiamine (B-1) 100 MG TABLET PO SCH (09:20)
[2020-03-16] MEDS: Folic Acid 1 MG TABLET PO SCH (09:20)
[2020-03-16] MEDS: Dexamethasone 4 MG/ML VIAL IVP SCH (09:21)
[2020-03-16] MEDS: 0.9 % Sodium Chloride 1,000 ML IVC SCH ×3 (12:25→15:51)
[2020-03-17] MEDS: *HR* Enoxaparin 40 MG/0.4 ML SYRINGE SQ SCH (05:27)
[2020-03-17 07:46] VITALS: BP 137/73
[2020-03-17 08:29] LABS: Basophils % 0.2 %; Hematocrit 37.4 % (37.5-50.1); Hemoglobin 12.3 g/dL (12.9-16.9); Immature Granulocytes % 0.9 % (0-4); Lymphocytes # 1.4 K/mcL (0.6-4.6); Lymphocytes % 14.5 %; Mean Corpuscular HGB Conc 32.9 g/dL (31.6-35.5); Mean Corpuscular Hemoglobin 30.7 pg (28.0-33.3); Mean Corpuscular Volume 93.3 fL (83.0-100.0); Mean Platelet Volume 10.2 fL (9.4-12.4); Monocytes # 0.8 K/mcL (0.0-1.3); Monocytes % 8.1 %; Neutrophils # 7.3 K/mcL (1.6-8.9); Platelet Count 355 K/mcL (140-400); Red Blood Count 4.01 M/mcL (4.19-5.50); Red Cell Distribution Width 12.5 % (11.5-14.5); Segmented Neutrophils % 76.3 %; White Blood Count 9.6 K/mcL (4.3-11.1)
[2020-03-17] MEDS: Insulin LISPRO 300 UNITS/3 ML VIAL SUBQ SCH ×2 (08:31→11:07)
[2020-03-17] MEDS: Aspirin Enteric Coated 81 MG Tablet PO SCH (08:37)
[2020-03-17] MEDS: cefTRIAXone 1,000 MG in Water for inj. (sterile) 10 ML IVP SCH (08:38)
[2020-03-17] MEDS: Thiamine (B-1) 100 MG TABLET PO SCH (08:38)
[2020-03-17] MEDS: Folic Acid 1 MG TABLET PO SCH (08:38)
[2020-03-17] MEDS: Metoprolol XL (24 HR) Succ 25 MG TAB.ER.24H PO SCH (08:38)
[2020-03-17] MEDS: Vitamin B Complex/Vit C/Vit E 1 EACH TABLET PO SCH (08:38)
[2020-03-17] MEDS: Dexamethasone 4 MG/ML VIAL IVP SCH (08:41)
[2020-03-17 08:46] LABS: Alanine Aminotransferase 61 Units/L (7-52); Alkaline Phosphatase 72 Units/L (34-104); Aspartate Amino Transferase 58 Units/L (13-39); BUN/Creatinine Ratio 28 (6-26); Bilirubin,Total 0.3 mg/dL (0.3-1.0); Blood Urea Nitrogen 21 mg/dL (8-23); Calcium 8.8 mg/dL (8.6-10.3); Carbon Dioxide 28 mEq/L (23-29); Chloride 106 mEq/L (98-107); Glucose 149 mg/dL (70-105); Osmolality,Calculated 298 (280-300); Potassium 3.6 mEq/L (3.5-5.1); Sodium 141 mEq/L (136-145); eGFR For African Americans > 60 (> 60); eGFR For Non-African Americans > 60 (> 60)
== END 2020-03-17 11:26 | disposition home or self-care (01) | DRG 871 ==
LOC: EMEROOARM 13:26 → 2NENU 18:08 → SUATTDRO 18:08 → 2NENU 20:12 → 3BNU 03-16 15:13
PROVIDERS: ADMIT General Practice; ATTEND Family Medicine

== ENCOUNTER 2020-03-25 19:08 | Observation (INO) ==
[2020-03-25] MEDS ORDERED: 0.9 % Sodium Chloride 1,000 ML IVC ONE (19:34)
[2020-03-25] MEDS ORDERED: Isovue-370 500 ML BOTTLE IVP ONE (19:41)
[2020-03-25 20:13] LABS: Basophils % 0.1 %; Eosinophils % 0.1 %; Hematocrit 35.7 % (37.5-50.1); Hemoglobin 11.7 g/dL (12.9-16.9); Immature Granulocytes % 0.6 % (0-4); Lymphocytes # 1.2 K/mcL (0.6-4.6); Lymphocytes % 5.7 %; Mean Corpuscular HGB Conc 32.8 g/dL (31.6-35.5); Mean Corpuscular Hemoglobin 29.5 pg (28.0-33.3); Mean Corpuscular Volume 89.9 fL (83.0-100.0); Mean Platelet Volume 10.3 fL (9.4-12.4); Monocytes # 0.8 K/mcL (0.0-1.3); Monocytes % 3.8 %; Neutrophils # 19.1 K/mcL (1.6-8.9); Platelet Count 285 K/mcL (140-400); Red Blood Count 3.97 M/mcL (4.19-5.50); Red Cell Distribution Width 12.6 % (11.5-14.5); Segmented Neutrophils % 89.7 %; White Blood Count 21.3 K/mcL (4.3-11.1)
[2020-03-25 20:29] LABS: Alanine Aminotransferase 42 Units/L (7-52); Albumin/Globulin Ratio 0.8 (1.1-2.2); Alkaline Phosphatase 77 Units/L (34-104); Aspartate Amino Transferase 41 Units/L (13-39); BUN/Creatinine Ratio 11 (6-26); Bilirubin,Direct 0.1 mg/dL (0.0-0.2); Bilirubin,Indirect 0.7 mg/dL (0.0-1.0); Bilirubin,Total 0.8 mg/dL (0.3-1.0); Blood Urea Nitrogen 9 mg/dL (8-23); Calcium 8.5 mg/dL (8.6-10.3); Carbon Dioxide 28 mEq/L (23-29); Chloride 94 mEq/L (98-107); Ethanol < 10 mg/dL (Less than 10); Globulin 3.6 g/dL (2.4-3.5); Glucose 152 mg/dL (70-105); Osmolality,Calculated 272 (280-300); Sodium 130 mEq/L (136-145); Total Protein 6.6 g/dL (6.4-8.9); Troponin I < 0.03 ng/mL (< 0.04); eGFR For African Americans > 60 (> 60); eGFR For Non-African Americans > 60 (> 60)
[2020-03-25 20:56] LABS: ABG Base Excess 1 mEq/L (-2 to 3); ABG HCO3 24 mEq/L (21-27); ABG Oxygen Saturation 95 % (95-98); ABG PCO2 34 mmHg (35-45); ABG PH 7.46 pH Units (7.32-7.45); ABG PO2 70 mmHg (85-104); ABG TCO2 25 mEq/L (20-26)
[2020-03-25 22:01] LABS: Bilirubin,Urine Negative (Negative); Blood,Urine Negative (Negative); Clarity,Urine Clear (Clear); Color,Urine Light-Yellow (Yellow); Glucose,Urine (UA) Normal (Normal); Ketones,Urine Negative (Negative); Leukocyte Esterase,Urine Negative (Negative); Nitrite,Urine Negative (Negative); PH,Urine 6.5 pH Units (5.0-8.0); Protein,Urine Trace mg/dL (Neg-Trace); Specific Gravity,Urine > 1.030 (1.010-1.025); Urobilinogen,Urine Normal (Normal)
[2020-03-25 22:09] LABS: Amphetamine Screen,Urine Negative ng/mL (Cutoff=1000); Barbiturate Screen,Urine Negative ng/mL (Cutoff=200); Benzodiazepines Screen,Urine Negative ng/mL (Cutoff=200); Cannabinoid Screen,Urine Negative ng/mL (Cutoff = 50); Cocaine Screen,Urine Negative ng/mL (Cutoff= 300); Opiate Screen,Urine Negative ng/mL (Cutoff=300); Phencyclidine Screen,Urine Negative ng/mL (Cutoff=25)
[2020-03-25] MEDS ORDERED: Naloxone 0.4 MG/ML INJ IVP PRN (22:11)
[2020-03-25] MEDS ORDERED: Ondansetron ODT 4 MG TAB.RAPDIS SL PRN (22:11)
[2020-03-25] MEDS ORDERED: D5% in Water 1,000 ML IVC PRN (22:15)
[2020-03-25] MEDS ORDERED: *HR* Dextrose 50 % in Water (Vial) 50 ML VIAL IVP PRN (22:15)
[2020-03-25] MEDS ORDERED: Dextrose Gel 15 GM/37.5 ML TUBE PO PRN ×2 (22:15)
[2020-03-25] MEDS ORDERED: Insulin LISPRO 300 UNITS/3 ML VIAL SUBQ SCH (22:15)
[2020-03-25] MEDS: Acetaminophen 325 MG TABLET PO PRN (23:26)
[2020-03-26 00:56] LABS: Basophils % 0.1 %; Eosinophils % 0.1 %; Hematocrit 34.4 % (37.5-50.1); Hemoglobin 11.5 g/dL (12.9-16.9); Immature Granulocytes % 0.6 % (0-4); Lymphocytes # 0.8 K/mcL (0.6-4.6); Lymphocytes % 4.3 %; Mean Corpuscular HGB Conc 33.4 g/dL (31.6-35.5); Mean Corpuscular Hemoglobin 30.8 pg (28.0-33.3); Mean Corpuscular Volume 92.2 fL (83.0-100.0); Mean Platelet Volume 10.3 fL (9.4-12.4); Monocytes # 0.8 K/mcL (0.0-1.3); Neutrophils # 17.4 K/mcL (1.6-8.9); Platelet Count 239 K/mcL (140-400); Red Blood Count 3.73 M/mcL (4.19-5.50); Red Cell Distribution Width 12.6 % (11.5-14.5); Segmented Neutrophils % 90.9 %; White Blood Count 19.2 K/mcL (4.3-11.1)
[2020-03-26 01:15] LABS: BUN/Creatinine Ratio 12 (6-26); Blood Urea Nitrogen 9 mg/dL (8-23); Calcium 8.1 mg/dL (8.6-10.3); Carbon Dioxide 24 mEq/L (23-29); Chloride 97 mEq/L (98-107); Glucose 148 mg/dL (70-105); Magnesium 1.5 mg/dL (1.6-2.6); Osmolality,Calculated 273 (280-300); Phosphorous 2.6 mg/dL (2.7-4.5); Potassium 3.2 mEq/L (3.5-5.1); Sodium 131 mEq/L (136-145); eGFR For African Americans > 60 (> 60); eGFR For Non-African Americans > 60 (> 60)
[2020-03-26] MEDS ORDERED: *HR* Enoxaparin 30 MG/0.3 ML SYRINGE SQ SCH (06:00)
[2020-03-26] MEDS: Insulin LISPRO 300 UNITS/3 ML VIAL SUBQ SCH ×2 (08:20→12:00)
[2020-03-27] MEDS: *HR* Enoxaparin 40 MG/0.4 ML SYRINGE SQ SCH (05:53)
[2020-03-27 07:01] LABS: Hematocrit 37.1 % (37.5-50.1); Hemoglobin 11.9 g/dL (12.9-16.9); Mean Corpuscular HGB Conc 32.1 g/dL (31.6-35.5); Mean Corpuscular Hemoglobin 29.9 pg (28.0-33.3); Mean Corpuscular Volume 93.2 fL (83.0-100.0); Mean Platelet Volume 10.6 fL (9.4-12.4); Platelet Count 267 K/mcL (140-400); Red Blood Count 3.98 M/mcL (4.19-5.50); Red Cell Distribution Width 12.8 % (11.5-14.5); White Blood Count 16.7 K/mcL (4.3-11.1)
[2020-03-27 07:22] LABS: BUN/Creatinine Ratio 12 (6-26); Blood Urea Nitrogen 8 mg/dL (8-23); Calcium 8.6 mg/dL (8.6-10.3); Carbon Dioxide 26 mEq/L (23-29); Chloride 97 mEq/L (98-107); Glucose 116 mg/dL (70-105); Osmolality,Calculated 275 (280-300); Phosphorous 2.8 mg/dL (2.7-4.5); Potassium 3.7 mEq/L (3.5-5.1); Sodium 133 mEq/L (136-145); eGFR For African Americans > 60 (> 60); eGFR For Non-African Americans > 60 (> 60)
[2020-03-27] MEDS: Metoprolol XL (24 HR) Succ 25 MG TAB.ER.24H PO SCH (12:23)
[2020-03-27] MEDS: Aspirin Enteric Coated 81 MG Tablet PO SCH (12:24)
[2020-03-27] MEDS ORDERED: Melatonin 3 MG TABLET PO ONE (23:14)
[2020-03-28] MEDS: *HR* Enoxaparin 40 MG/0.4 ML SYRINGE SQ SCH (05:00)
[2020-03-28] MEDS: Aspirin Enteric Coated 81 MG Tablet PO SCH (09:02)
[2020-03-28] MEDS: Metoprolol XL (24 HR) Succ 25 MG TAB.ER.24H PO SCH (09:02)
[2020-03-28] MEDS: Tiotropium 10 INH DOSE IH SCH (16:32)
[2020-03-29 03:11] LABS: Hematocrit 36.5 % (37.5-50.1); Hemoglobin 11.9 g/dL (12.9-16.9); Mean Corpuscular HGB Conc 32.6 g/dL (31.6-35.5); Mean Corpuscular Hemoglobin 30.1 pg (28.0-33.3); Mean Corpuscular Volume 92.2 fL (83.0-100.0); Mean Platelet Volume 9.8 fL (9.4-12.4); Platelet Count 302 K/mcL (140-400); Red Blood Count 3.96 M/mcL (4.19-5.50); Red Cell Distribution Width 12.6 % (11.5-14.5); White Blood Count 11.1 K/mcL (4.3-11.1)
[2020-03-29 03:30] LABS: BUN/Creatinine Ratio 17 (6-26); Blood Urea Nitrogen 9 mg/dL (8-23); Calcium 8.6 mg/dL (8.6-10.3); Carbon Dioxide 28 mEq/L (23-29); Chloride 97 mEq/L (98-107); Glucose 148 mg/dL (70-105); Magnesium 1.5 mg/dL (1.6-2.6); Osmolality,Calculated 279 (280-300); Potassium 3.6 mEq/L (3.5-5.1); Sodium 134 mEq/L (136-145); eGFR For African Americans > 60 (> 60); eGFR For Non-African Americans > 60 (> 60)
[2020-03-29] MEDS: *HR* Enoxaparin 40 MG/0.4 ML SYRINGE SQ SCH (05:18)
[2020-03-29] MEDS: Aspirin Enteric Coated 81 MG Tablet PO SCH (10:29)
[2020-03-29] MEDS: Metoprolol XL (24 HR) Succ 25 MG TAB.ER.24H PO SCH (10:30)
[2020-03-29] MEDS: Tiotropium 10 INH DOSE IH SCH (16:16)
[2020-03-29] MEDS: QUEtiapine Fumarate 25 MG TABLET PO SCH (20:46)
[2020-03-30] MEDS: Acetaminophen 325 MG TABLET PO PRN (04:30)
[2020-03-30] MEDS: *HR* Enoxaparin 40 MG/0.4 ML SYRINGE SQ SCH (05:08)
[2020-03-30] MEDS: Tiotropium 10 INH DOSE IH SCH (09:33)
[2020-03-30] MEDS: Aspirin Enteric Coated 81 MG Tablet PO SCH (10:52)
[2020-03-30] MEDS: levoFLOXacin 500 MG TABLET PO SCH (10:52)
[2020-03-30] MEDS: Metoprolol XL (24 HR) Succ 25 MG TAB.ER.24H PO SCH (10:52)
[2020-03-30] MEDS: QUEtiapine Fumarate 25 MG TABLET PO SCH (20:50)
[2020-03-31] MEDS: *HR* Enoxaparin 40 MG/0.4 ML SYRINGE SQ SCH (05:32)
[2020-03-31] MEDS: levoFLOXacin 500 MG TABLET PO SCH (08:23)
[2020-03-31] MEDS: Aspirin Enteric Coated 81 MG Tablet PO SCH (08:23)
[2020-03-31] MEDS: Metoprolol XL (24 HR) Succ 25 MG TAB.ER.24H PO SCH (08:23)
[2020-03-31] MEDS: Tiotropium 10 INH DOSE IH SCH (09:04)
[2020-03-31 11:08] VITALS: BP 140/65
== END 2020-03-31 14:54 ==
LOC: EMEROOARM 19:08 → 2NENU 19:08 → SUATTDRO 22:03 → 2NENU 22:43 → 3BNU 03-28 11:16
PROVIDERS: ADMIT Family Medicine; ATTEND Internal Medicine

== ENCOUNTER 2020-11-12 20:43 | Observation (INO) ==
[2020-11-12 22:40] LABS: Basophils % 0.4 %; Eosinophils # 0.1 K/mcL (0.0-0.6); Eosinophils % 0.7 %; Hematocrit 35.5 % (37.5-50.1); Hemoglobin 12.1 g/dL (12.9-16.9); Immature Granulocytes % 0.4 % (0-4); Lymphocytes # 1.8 K/mcL (0.6-4.6); Lymphocytes % 23.4 %; Mean Corpuscular HGB Conc 34.1 g/dL (31.6-35.5); Mean Platelet Volume 10.1 fL (9.4-12.4); Monocytes # 0.7 K/mcL (0.0-1.3); Monocytes % 9.4 %; Neutrophils # 4.9 K/mcL (1.6-8.9); Platelet Count 191 K/mcL (140-400); Red Cell Distribution Width 12.6 % (11.5-14.5); Segmented Neutrophils % 65.7 %; White Blood Count 7.5 K/mcL (4.3-11.1)
[2020-11-12 23:05] LABS: BUN/Creatinine Ratio 24 (6-26); Blood Urea Nitrogen 27 mg/dL (8-23); Calcium 9.2 mg/dL (8.6-10.3); Carbon Dioxide 21 mEq/L (23-29); Chloride 101 mEq/L (98-107); Glucose 95 mg/dL (70-105); Osmolality,Calculated 283 (280-300); Potassium 3.9 mEq/L (3.5-5.1); Sodium 134 mEq/L (136-145); Troponin I < 0.03 ng/mL (< 0.04); eGFR For African Americans > 60 (> 60); eGFR For Non-African Americans > 60 (> 60)
[2020-11-13] MEDS ORDERED: 0.9 % Sodium Chloride 500 ML IVC STA (00:28)
[2020-11-13] MEDS ORDERED: 0.9 % Sodium Chloride 1,000 ML IVC STA (00:57)
[2020-11-13 01:58] LABS: Influenza A PCR Negative (Negative); Influenza B PCR Negative (Negative); Resp. Syncytial Virus PCR Negative (Negative)
[2020-11-13 01:59] LABS: SARS-CoV-2 by PCR (In House) Negative (Negative)
[2020-11-13] MEDS ORDERED: 0.9 % Sodium Chloride 1,000 ML IVC ONE (02:53)
[2020-11-13] MEDS ORDERED: Isovue-370 500 ML BOTTLE IVP ONE (02:53)
[2020-11-13 03:13] LABS: Bilirubin,Urine Negative (Negative); Blood,Urine Negative (Negative); Clarity,Urine Clear (Clear); Color,Urine Yellow (Yellow); Glucose,Urine (UA) Normal (Normal); Ketones,Urine Negative (Negative); Leukocyte Esterase,Urine Negative (Negative); Nitrite,Urine Negative (Negative); PH,Urine 5.5 pH Units (5.0-8.0); Protein,Urine Trace mg/dL (Neg-Trace); Specific Gravity,Urine 1.017 (1.010-1.025); Urobilinogen,Urine Normal (Normal)
[2020-11-13] MEDS ORDERED: Ondansetron 4 MG/2 ML VIAL IVP PRN (05:29)
[2020-11-13] MEDS ORDERED: Naloxone 0.4 MG/ML INJ IVP PRN (05:29)
[2020-11-13] MEDS ORDERED: Perflutren Lipid Microsphere 1.3 ML in 0.9 % Sodium Chloride 8.7 ML IVP PRN (05:31)
[2020-11-13 07:16] LABS: Hematocrit 32.8 % (37.5-50.1); Hemoglobin 10.9 g/dL (12.9-16.9); Mean Corpuscular HGB Conc 33.2 g/dL (31.6-35.5); Mean Corpuscular Hemoglobin 30.4 pg (28.0-33.3); Mean Corpuscular Volume 91.4 fL (83.0-100.0); Mean Platelet Volume 9.9 fL (9.4-12.4); Platelet Count 161 K/mcL (140-400); Red Blood Count 3.59 M/mcL (4.19-5.50); Red Cell Distribution Width 12.8 % (11.5-14.5); White Blood Count 6.2 K/mcL (4.3-11.1)
[2020-11-13 07:23] LABS: INR 1.1; Prothrombin Time 12.3 Seconds (9.4-12.1)
[2020-11-13 07:36] LABS: BUN/Creatinine Ratio 22 (6-26); Blood Urea Nitrogen 23 mg/dL (8-23); Calcium 8.3 mg/dL (8.6-10.3); Carbon Dioxide 23 mEq/L (23-29); Chloride 107 mEq/L (98-107); Chol/HDL Ratio 2.4 (0-4.9); Cholesterol 90 mg/dL (< 200); Glucose 94 mg/dL (70-105); HDL Cholesterol 37 mg/dL (40-59); LDL Cholesterol,Calculated 36 mg/dL (< 100); Magnesium 1.6 mg/dL (1.6-2.6); Osmolality,Calculated 287 (280-300); Potassium 3.6 mEq/L (3.5-5.1); Sodium 137 mEq/L (136-145); Triglycerides 85 mg/dL (< 150); eGFR For African Americans > 60 (> 60); eGFR For Non-African Americans > 60 (> 60)
[2020-11-13 07:42] LABS: % Iron Saturation 14 % (20-55); Iron 45 mcg/dL (65-175); Transferrin 226 mg/dL (203-362)
[2020-11-13 07:55] LABS: Ferritin 168 ng/mL (20-250)
[2020-11-13 08:30] LABS: Folate > 22.3 ng/mL (3.0-16.0); Vitamin B12 360 pg/mL (250-1100)
[2020-11-13] MEDS ORDERED: Aspirin Enteric Coated 325 MG Tablet PO SCH (09:00)
[2020-11-13 12:03] LABS: Estimated Average Glucose 134 mg/dl; Hemoglobin A1C 6.3 %
[2020-11-13] MEDS: *HR* Heparin 5,000 UNIT/ML VIAL SQ SCH (17:45)
[2020-11-14 06:14] LABS: Hematocrit 35.2 % (37.5-50.1); Hemoglobin 11.7 g/dL (12.9-16.9); Mean Corpuscular HGB Conc 33.2 g/dL (31.6-35.5); Mean Corpuscular Hemoglobin 30.3 pg (28.0-33.3); Mean Corpuscular Volume 91.2 fL (83.0-100.0); Mean Platelet Volume 10.1 fL (9.4-12.4); Platelet Count 181 K/mcL (140-400); Red Blood Count 3.86 M/mcL (4.19-5.50); Red Cell Distribution Width 12.8 % (11.5-14.5); White Blood Count 6.7 K/mcL (4.3-11.1)
[2020-11-14] MEDS: *HR* Heparin 5,000 UNIT/ML VIAL SQ SCH ×2 (06:17→17:39)
[2020-11-14 06:33] LABS: BUN/Creatinine Ratio 16 (6-26); Blood Urea Nitrogen 14 mg/dL (8-23); Carbon Dioxide 24 mEq/L (23-29); Chloride 105 mEq/L (98-107); Glucose 98 mg/dL (70-105); Osmolality,Calculated 282 (280-300); Potassium 3.7 mEq/L (3.5-5.1); Sodium 136 mEq/L (136-145); eGFR For African Americans > 60 (> 60); eGFR For Non-African Americans > 60 (> 60)
[2020-11-14] MEDS: Vitamin B Complex/Vit C/Vit E 1 EACH TABLET PO SCH (08:24)
[2020-11-14] MEDS: Multivit/Ca/Min/Fe/FA 1 TAB TABLET PO SCH (08:24)
[2020-11-14] MEDS: Aspirin Enteric Coated 81 MG Tablet PO SCH (08:24)
[2020-11-14] MEDS: (Omega-3/Dha/Epa/Fish Oil [Fish Oil 1,000 Mg Softgel] PO SCH (08:25)
[2020-11-14] MEDS ORDERED: Aspirin Enteric Coated 81 MG Tablet PO SCH (09:00)
[2020-11-14 10:09] LABS: Calcium 8.8 mg/dL (8.6-10.3)
[2020-11-15] MEDS: *HR* Heparin 5,000 UNIT/ML VIAL SQ SCH (05:29)
[2020-11-15 07:03] VITALS: BP 161/77; PULSE 68; TEMP 97.5; O2SAT 99
[2020-11-15] MEDS: Aspirin Enteric Coated 81 MG Tablet PO SCH (08:19)
[2020-11-15] MEDS: Vitamin B Complex/Vit C/Vit E 1 EACH TABLET PO SCH (08:19)
[2020-11-15] MEDS: (Omega-3/Dha/Epa/Fish Oil [Fish Oil 1,000 Mg Softgel] PO SCH (08:19)
[2020-11-15] MEDS: Multivit/Ca/Min/Fe/FA 1 TAB TABLET PO SCH (08:19)
== END 2020-11-15 11:36 | disposition home or self-care (01) ==
LOC: EMEROOARM 20:43 → 3ANU 20:43 → SUATTDRO 11-13 05:00 → 3ANU 11-13 06:42
PROVIDERS: ADMIT Internal Medicine; ATTEND Student in an Organized Health Care Education/Training Program

== ENCOUNTER 2020-11-22 06:18 | Observation (INO) ==
[2020-11-22] MEDS ORDERED: 0.9 % Sodium Chloride 1,000 ML IVC ONE (06:22)
[2020-11-22 07:24] LABS: Eosinophils # 0.2 K/mcL (0.0-0.6); Hematocrit 20.9 % (37.5-50.1); Mean Corpuscular Hemoglobin 31.7 pg (28.0-33.3); Mean Corpuscular Volume 95.9 fL (83.0-100.0); Mean Platelet Volume 10.2 fL (9.4-12.4); Platelet Count 233 K/mcL (140-400); Red Blood Count 2.18 M/mcL (4.19-5.50); Red Cell Distribution Width 13.4 % (11.5-14.5); White Blood Count 8.4 K/mcL (4.3-11.1)
[2020-11-22 07:25] LABS: Hemoglobin 6.9 g/dL (12.9-16.9)
[2020-11-22 07:33] LABS: Activated Partial Thrombo Time 28.8 Seconds (26.0-36.0)
[2020-11-22 07:36] LABS: Alanine Aminotransferase 17 Units/L (7-52); Albumin 3.6 g/dL (3.5-5.7); Albumin/Globulin Ratio 1.7 (1.1-2.2); Alkaline Phosphatase 57 Units/L (34-104); Aspartate Amino Transferase 21 Units/L (13-39); BUN/Creatinine Ratio 13 (6-26); Bilirubin,Total 0.3 mg/dL (0.3-1.0); Blood Urea Nitrogen 16 mg/dL (8-23); Calcium 8.8 mg/dL (8.6-10.3); Carbon Dioxide 21 mEq/L (23-29); Chloride 103 mEq/L (98-107); Globulin 2.1 g/dL (2.4-3.5); Glucose 159 mg/dL (70-105); Lipase 51 Units/L (11-82); Magnesium 1.3 mg/dL (1.6-2.6); Osmolality,Calculated 283 (280-300); Sodium 134 mEq/L (136-145); Total Protein 5.7 g/dL (6.4-8.9); Troponin I < 0.03 ng/mL (< 0.04); eGFR For African Americans > 60 (> 60); eGFR For Non-African Americans 57 (> 60)
[2020-11-22 08:04] LABS: Lymphocytes # 2.7 K/mcL (0.6-4.6); Monocytes # 0.3 K/mcL (0.0-1.3); Neutrophils # 5.2 K/mcL (1.6-8.9); Reactive Lymphocytes Present (Not Present)
[2020-11-22 08:05] LABS: Platelet Estimate Normal (Normal)
[2020-11-22] MEDS ORDERED: Naloxone 0.4 MG/ML INJ IVP PRN (09:12)
[2020-11-22] MEDS ORDERED: Ondansetron 4 MG/2 ML VIAL IVP PRN (09:12)
[2020-11-22] MEDS: MetroNIDAZOLE 500 MG/100 ML 500 MG/100 ML BAG IVPB SCH ×3 (11:50→23:12)
[2020-11-22] MEDS ORDERED: 0.9 % Sodium Chloride 250 ML ONE ×2 (12:19→18:23)
[2020-11-22 14:24] LABS: Hematocrit 17.2 % (37.5-50.1)
[2020-11-22 14:29] LABS: Hemoglobin 5.6 g/dL (12.9-16.9)
[2020-11-22] MEDS ORDERED: SODIUM CHLORIDE/NAHCO3/KCL/PEG 4,000 ML SOLN.RECON PO ONE (17:00)
[2020-11-22 23:08] LABS: Hematocrit 28.4 % (37.5-50.1)
[2020-11-22 23:09] LABS: Hemoglobin 9.6 g/dL (12.9-16.9)
[2020-11-23 05:57] LABS: Hematocrit 25.1 % (37.5-50.1); Hemoglobin 8.3 g/dL (12.9-16.9)
[2020-11-23 06:18] LABS: BUN/Creatinine Ratio 11 (6-26); Basophils # 0.1 K/mcL (0.0-0.2); Basophils % 0.7 %; Blood Urea Nitrogen 11 mg/dL (8-23); Calcium 8.1 mg/dL (8.6-10.3); Carbon Dioxide 22 mEq/L (23-29); Chloride 104 mEq/L (98-107); Eosinophils # 0.2 K/mcL (0.0-0.6); Eosinophils % 1.8 %; Glucose 123 mg/dL (70-105); Immature Granulocytes % 0.5 % (0-4); Lymphocytes # 2.1 K/mcL (0.6-4.6); Lymphocytes % 24.4 %; Mean Corpuscular HGB Conc 32.4 g/dL (31.6-35.5); Mean Corpuscular Hemoglobin 29.7 pg (28.0-33.3); Mean Corpuscular Volume 91.7 fL (83.0-100.0); Mean Platelet Volume 10.1 fL (9.4-12.4); Monocytes # 0.6 K/mcL (0.0-1.3); Monocytes % 7.4 %; Neutrophils # 5.5 K/mcL (1.6-8.9); Osmolality,Calculated 277 (280-300); Platelet Count 172 K/mcL (140-400); Potassium 4.3 mEq/L (3.5-5.1); Red Blood Count 2.76 M/mcL (4.19-5.50); Red Cell Distribution Width 15.4 % (11.5-14.5); Segmented Neutrophils % 65.2 %; Sodium 133 mEq/L (136-145); White Blood Count 8.5 K/mcL (4.3-11.1); eGFR For African Americans > 60 (> 60); eGFR For Non-African Americans > 60 (> 60)
[2020-11-23 07:02] LABS: Folate > 22.3 ng/mL (3.0-16.0); Vitamin B12 255 pg/mL (250-1100)
[2020-11-23] MEDS: MetroNIDAZOLE 500 MG/100 ML 500 MG/100 ML BAG IVPB SCH ×2 (08:33→15:53)
[2020-11-23] MEDS ORDERED: *HR* Etomidate 20 MG/10 ML AMPUL IVP ONE (09:12)
[2020-11-23] MEDS ORDERED: *HR* Propofol 200 MG/20 ML VIAL IVP ONE (09:12)
[2020-11-23] MEDS ORDERED: Folic Acid 1 MG TABLET PO SCH (10:00)
[2020-11-23] MEDS ORDERED: Pantoprazole 40 MG VIAL IVP SCH (10:00)
[2020-11-23] MEDS ORDERED: Vitamin B Complex/Vit C/Vit E 1 EACH TABLET PO SCH (10:00)
[2020-11-23] MEDS: Folic Acid 1 MG TABLET PO SCH (15:44)
[2020-11-23] MEDS: Pantoprazole 40 MG VIAL IVP SCH (15:45)
[2020-11-23] MEDS: Vitamin B Complex/Vit C/Vit E 1 EACH TABLET PO SCH (15:45)
[2020-11-23 16:13] LABS: Hematocrit 28.4 % (37.5-50.1); Hemoglobin 9.6 g/dL (12.9-16.9)
[2020-11-24] MEDS: MetroNIDAZOLE 500 MG/100 ML 500 MG/100 ML BAG IVPB SCH ×2 (00:28→09:07)
[2020-11-24 05:35] LABS: Hematocrit 25.4 % (37.5-50.1); Hemoglobin 8.6 g/dL (12.9-16.9)
[2020-11-24 05:54] LABS: BUN/Creatinine Ratio 7 (6-26); Blood Urea Nitrogen 7 mg/dL (8-23); Calcium 8.5 mg/dL (8.6-10.3); Carbon Dioxide 25 mEq/L (23-29); Chloride 106 mEq/L (98-107); Glucose 99 mg/dL (70-105); Magnesium 1.6 mg/dL (1.6-2.6); Osmolality,Calculated 282 (280-300); Sodium 137 mEq/L (136-145); eGFR For African Americans > 60 (> 60); eGFR For Non-African Americans > 60 (> 60)
[2020-11-24 08:27] VITALS: BP 130/69; PULSE 76; TEMP 97.6; O2SAT 93
[2020-11-24] MEDS ORDERED: Vitamin B Complex/Vit C/Vit E 1 EACH TABLET PO SCH (09:00)
[2020-11-24] MEDS ORDERED: NON-FORMULARY MEDICATION 1 EACH EACH (Omega-3/Dha/Epa/Fish Oil [Fish Oil 1,000 Mg Softgel] PO SCH (09:00)
[2020-11-24] MEDS ORDERED: Multivit/Ca/Min/Fe/FA 1 TAB TABLET PO SCH (09:00)
[2020-11-24] MEDS: Folic Acid 1 MG TABLET PO SCH (09:06)
[2020-11-24] MEDS: Pantoprazole 40 MG VIAL IVP SCH (09:06)
[2020-11-24] MEDS: Vitamin B Complex/Vit C/Vit E 1 EACH TABLET PO SCH (09:06)
== END 2020-11-24 10:25 | disposition home or self-care (01) ==
LOC: EMEROOARM 06:18 → 3ANU 06:18 → SUATTDRO 09:11 → 3ANU 10:05
PROVIDERS: ADMIT Internal Medicine; ATTEND Internal Medicine
PROC: ENDOCBX (2020-11-23 13:40)

== ENCOUNTER 2021-07-26 13:48 | Inpatient (IN) ==
[2021-07-26] MEDS ORDERED: 0.9 % Sodium Chloride 1,000 ML IV ONE (13:58)
[2021-07-26] MEDS ORDERED: cefTRIAXone 1,000 MG in 0.9 % Sodium Chloride 10 ML IVP ONE (14:11)
[2021-07-26 14:33] LABS: Basophils % 0.2 %; Hematocrit 37.6 % (37.5-50.1); Hemoglobin 13.1 g/dL (12.9-16.9); Immature Granulocytes % 0.9 % (0-4); Lymphocytes # 0.5 K/mcL (0.6-4.6); Mean Corpuscular HGB Conc 34.8 g/dL (31.6-35.5); Mean Corpuscular Hemoglobin 30.8 pg (28.0-33.3); Mean Corpuscular Volume 88.5 fL (83.0-100.0); Mean Platelet Volume 10.1 fL (9.4-12.4); Monocytes # 0.5 K/mcL (0.0-1.3); Monocytes % 4.7 %; Neutrophils # 9.6 K/mcL (1.6-8.9); Platelet Count 170 K/mcL (140-400); Red Blood Count 4.25 M/mcL (4.19-5.50); Red Cell Distribution Width 12.5 % (11.5-14.5); Segmented Neutrophils % 89.2 %; White Blood Count 10.8 K/mcL (4.3-11.1)
[2021-07-26 14:55] LABS: Alanine Aminotransferase 17 Units/L (7-52); Albumin 3.9 g/dL (3.5-5.7); Albumin/Globulin Ratio 1.6 (1.1-2.2); Alkaline Phosphatase 37 Units/L (34-104); Aspartate Amino Transferase 25 Units/L (13-39); BUN/Creatinine Ratio 15 (6-26); Bilirubin,Total 1.5 mg/dL (0.3-1.0); Blood Urea Nitrogen 24 mg/dL (8-23); Calcium 8.8 mg/dL (8.6-10.3); Carbon Dioxide 21 mEq/L (23-29); Chloride 93 mEq/L (98-107); Globulin 2.5 g/dL (2.4-3.5); Glucose 165 mg/dL (70-105); Magnesium 1.1 mg/dL (1.6-2.6); Osmolality,Calculated 270 (280-300); Potassium 3.9 mEq/L (3.5-5.1); Sodium 126 mEq/L (136-145); Total Protein 6.4 g/dL (6.4-8.9); Troponin I < 0.03 ng/mL (< 0.04); eGFR For African Americans 51 (> 60); eGFR For Non-African Americans 42 (> 60)
[2021-07-26 15:09] LABS: Thyroid Stimulating Hormone 2.665 mcIU/mL (0.340-5.600)
[2021-07-26 15:16] LABS: Influenza A PCR Negative (Negative); Influenza B PCR Negative (Negative); Resp. Syncytial Virus PCR Negative (Negative); SARS-CoV-2 by PCR (In House) Negative (Negative)
[2021-07-26] MEDS ORDERED: Ondansetron 4 MG/2 ML VIAL IVP PRN (17:43)
[2021-07-26] MEDS ORDERED: Naloxone 0.4 MG/ML INJ IVP PRN (17:43)
[2021-07-26] MEDS ORDERED: Acetaminophen 325 MG TABLET PO PRN (17:43)
[2021-07-26] MEDS ORDERED: Vancomycin 1,250 MG/262.5 ML IV.SOLN IVPB ONE (18:00)
[2021-07-26] MEDS ORDERED: *HR* LORazepam 2 MG/ML VIAL IVP PRN ×3 (18:23)
[2021-07-26 18:25] LABS: Bilirubin,Urine Negative (Negative); Blood,Urine Trace (Negative); Clarity,Urine Clear (Clear); Color,Urine Yellow (Yellow); Glucose,Urine (UA) Normal (Normal); Hyaline Casts,Urine Moderate per lpf (None Seen); Ketones,Urine Negative (Negative); Leukocyte Esterase,Urine Negative (Negative); Mucus,Urine Few per lpf (None-Few); Nitrite,Urine Negative (Negative); PH,Urine 5.5 pH Units (5.0-8.0); Protein,Urine 30 mg/dL (Neg-Trace); RBC,Urine 0-3 per hpf (0-3); Specific Gravity,Urine 1.016 (1.010-1.025); Squamous Epithelial Cell,Urine Few per hpf (None-Few); Urobilinogen,Urine Normal (Normal); WBC,Urine 0-3 per hpf (0-3)
[2021-07-26 18:35] LABS: Sodium, Urine 54.8 mEq/L
[2021-07-26] MEDS ORDERED: Thiamine (B-1) 100 MG, Folic Acid 1 MG, MVI, adult with vitamin K 10 ML in 0.9 % Sodi... IVPB SCH (18:51)
[2021-07-26] MEDS: Ipratropium/Albuterol Neb 3 ML IH SCH (20:51)
[2021-07-26] MEDS: Azithromycin 500 MG in 0.9 % Sodium Chloride 250 ML IVPB SCH (22:54)
[2021-07-26] MEDS: predniSONE 20 MG TABLET PO SCH (22:54)
[2021-07-26] MEDS: 0.9 % Sodium Chloride 1,000 ML IVC SCH (22:55)
[2021-07-26] MEDS: Melatonin 3 MG TABLET PO PRN (22:55)
[2021-07-26] MEDS: *HR* Heparin 5,000 UNIT/ML VIAL SQ SCH (22:55)
[2021-07-27] MEDS: Ipratropium/Albuterol Neb 3 ML IH SCH ×4 (03:51→20:11)
[2021-07-27] MEDS: *HR* Heparin 5,000 UNIT/ML VIAL SQ SCH ×3 (06:36→22:01)
[2021-07-27 07:29] LABS: Hematocrit 36.7 % (37.5-50.1); Hemoglobin 12.3 g/dL (12.9-16.9); Mean Corpuscular HGB Conc 33.5 g/dL (31.6-35.5); Mean Corpuscular Hemoglobin 30.8 pg (28.0-33.3); Mean Corpuscular Volume 91.8 fL (83.0-100.0); Mean Platelet Volume 10.3 fL (9.4-12.4); Platelet Count 143 K/mcL (140-400); Red Cell Distribution Width 12.7 % (11.5-14.5); White Blood Count 10.6 K/mcL (4.3-11.1)
[2021-07-27 07:37] LABS: INR 1.4; Prothrombin Time 15.5 Seconds (9.4-12.1)
[2021-07-27 07:55] LABS: Uric Acid 6.6 mg/dL (2.3-7.6)
[2021-07-27 07:56] LABS: Albumin 3.4 g/dL (3.5-5.7); Albumin/Globulin Ratio 1.1 (1.1-2.2); Bilirubin,Direct 0.2 mg/dL (0.0-0.2); Bilirubin,Indirect 0.8 mg/dL (0.0-1.0); Calcium 8.1 mg/dL (8.6-10.3); Magnesium 1.3 mg/dL (1.6-2.6); Total Protein 6.4 g/dL (6.4-8.9)
[2021-07-27 08:04] LABS: Lymphocytes # 0.4 K/mcL (0.6-4.6); Monocytes # 0.6 K/mcL (0.0-1.3); Neutrophils # 9.3 K/mcL (1.6-8.9); Platelet Estimate Normal (Normal)
[2021-07-27] MEDS ORDERED: Ipratropium/Albuterol Neb 3 ML IH ONE (08:47)
[2021-07-27] MEDS: Folic Acid 1 MG TABLET PO SCH (09:47)
[2021-07-27] MEDS: Aspirin Enteric Coated 81 MG Tablet PO SCH (09:47)
[2021-07-27] MEDS: Vitamin B Complex/Vit C/Vit E 1 EACH TABLET PO SCH (09:47)
[2021-07-27] MEDS: predniSONE 20 MG TABLET PO SCH (09:47)
[2021-07-27] MEDS: Thiamine (B-1) 100 MG TABLET PO SCH (09:47)
[2021-07-27] MEDS ORDERED: 0.9 % Sodium Chloride 1,000 ML IVC ONE (13:31)
[2021-07-27] MEDS: cefTRIAXone 1,000 MG in 0.9 % Sodium Chloride 10 ML IVP SCH (15:59)
[2021-07-27] MEDS: 0.9 % Sodium Chloride 1,000 ML IVC SCH (15:59)
[2021-07-27 16:35] LABS: mecA/C Methicillin-Resist Gene DETECTED (Not Detect)
[2021-07-27 16:37] LABS: A.calcoaceticus-baumannii cplx Not Detected (Not Detect); Bacteroides fragilis by PCR Not Detected (Not Detect); Candida albicans by PCR Not Detected (Not Detect); Candida auris by PCR Not Detected (Not Detect); Candida glabrata by PCR Not Detected (Not Detect); Candida krusei by PCR Not Detected (Not Detect); Candida parapsilosis by PCR Not Detected (Not Detect); Candida tropicalis by PCR Not Detected (Not Detect); Crypto. neoformans/gattii PCR Not Detected (Not Detect); Enterobacter cloacae Cmplx PCR Not Detected (Not Detect); Enterobacterales by PCR Not Detected (Not Detect); Enterococcus faecalis by PCR Not Detected (Not Detect); Enterococcus faecium by PCR Not Detected (Not Detect); Escherichia coli by PCR Not Detected (Not Detect); Klebs. pneumoniae group by PCR Not Detected (Not Detect); Klebsiella aerogenes by PCR Not Detected (Not Detect); Klebsiella oxytoca by PCR Not Detected (Not Detect); Proteus by PCR Not Detected (Not Detect); Pseudomonas aeruginosa by PCR Not Detected (Not Detect); Salmonella species by PCR Not Detected (Not Detect); Serratia marcescens by PCR Not Detected (Not Detect); Staph epidermidis by PCR DETECTED (Not Detect); Staph lugdunensis by PCR Not Detected (Not Detect); Staphylococcus aureus by PCR Not Detected (Not Detect); Stenotrophomonas maltophilia Not Detected (Not Detect); Streptococcus agalactiae(B)PCR Not Detected (Not Detect); Streptococcus by PCR Not Detected (Not Detect); Streptococcus pneumoniae PCR Not Detected (Not Detect); Streptococcus pyogenes (A) PCR Not Detected (Not Detect)
[2021-07-27] MEDS ORDERED: Thiamine (B-1) 100 MG, Folic Acid 1 MG, MVI, adult with vitamin K 10 ML in 0.9 % Sodi... IVPB SCH (18:00)
[2021-07-27] MEDS: Azithromycin 500 MG in 0.9 % Sodium Chloride 250 ML IVPB SCH (19:30)
[2021-07-27] MEDS: Budesonide/Formoterol 160/4.5 1 PUFF INH IH SCH (20:11)
[2021-07-27] MEDS ORDERED: Budesonide/Formoterol 160/4.5 1 PUFF INH IH ONE (20:17)
[2021-07-27] MEDS: Chlorhexidine Rinse 15 ML MOUTHWASH MM SCH (22:01)
[2021-07-27] MEDS: Melatonin 3 MG TABLET PO PRN (22:01)
[2021-07-28] MEDS: Ipratropium/Albuterol Neb 3 ML IH SCH ×6 (04:31→22:53)
[2021-07-28 05:05] LABS: Hematocrit 35.3 % (37.5-50.1); Hemoglobin 11.9 g/dL (12.9-16.9); Mean Corpuscular HGB Conc 33.7 g/dL (31.6-35.5); Mean Corpuscular Hemoglobin 30.7 pg (28.0-33.3); Mean Platelet Volume 10.6 fL (9.4-12.4); Platelet Count 147 K/mcL (140-400); Red Blood Count 3.88 M/mcL (4.19-5.50); Red Cell Distribution Width 12.9 % (11.5-14.5); White Blood Count 14.1 K/mcL (4.3-11.1)
[2021-07-28 05:25] LABS: BUN/Creatinine Ratio 24 (6-26); Blood Urea Nitrogen 25 mg/dL (8-23); Calcium 8.3 mg/dL (8.6-10.3); Carbon Dioxide 20 mEq/L (23-29); Chloride 102 mEq/L (98-107); Glucose 116 mg/dL (70-105); Magnesium 1.6 mg/dL (1.6-2.6); Osmolality,Calculated 279 (280-300); Phosphorous 2.6 mg/dL (2.7-4.5); Potassium 3.9 mEq/L (3.5-5.1); Sodium 132 mEq/L (136-145); eGFR For African Americans > 60 (> 60); eGFR For Non-African Americans > 60 (> 60)
[2021-07-28] MEDS: *HR* Heparin 5,000 UNIT/ML VIAL SQ SCH (06:22)
[2021-07-28] MEDS: 0.9 % Sodium Chloride 1,000 ML IVC SCH (06:23)
[2021-07-28] MEDS: predniSONE 20 MG TABLET PO SCH (09:38)
[2021-07-28] MEDS: Thiamine (B-1) 100 MG TABLET PO SCH (09:38)
[2021-07-28] MEDS: Folic Acid 1 MG TABLET PO SCH (09:39)
[2021-07-28] MEDS: Vitamin B Complex/Vit C/Vit E 1 EACH TABLET PO SCH (09:39)
[2021-07-28] MEDS: Aspirin Enteric Coated 81 MG Tablet PO SCH (09:39)
[2021-07-28] MEDS: Chlorhexidine Rinse 15 ML MOUTHWASH MM SCH ×2 (09:39→20:09)
[2021-07-28] MEDS: Budesonide/Formoterol 160/4.5 1 PUFF INH IH SCH ×2 (10:51→20:23)
[2021-07-28] MEDS ORDERED: methylPREDNISolone 125 MG/2 ML VIAL IVP ONE (11:34)
[2021-07-28] MEDS: cefTRIAXone 1,000 MG in 0.9 % Sodium Chloride 10 ML IVP SCH (16:45)
[2021-07-28] MEDS ORDERED: *HR* Rivaroxaban 10 MG TABLET PO SCH (17:00)
[2021-07-28] MEDS: Azithromycin 500 MG in 0.9 % Sodium Chloride 250 ML IVPB SCH (17:56)
[2021-07-29] MEDS: Ipratropium/Albuterol Neb 3 ML IH SCH ×6 (04:31→23:32)
[2021-07-29] MEDS: Budesonide/Formoterol 160/4.5 1 PUFF INH IH SCH ×2 (07:39→20:29)
[2021-07-29] MEDS: predniSONE 20 MG TABLET PO SCH (09:03)
[2021-07-29] MEDS: Chlorhexidine Rinse 15 ML MOUTHWASH MM SCH ×2 (09:03→19:56)
[2021-07-29] MEDS: Thiamine (B-1) 100 MG TABLET PO SCH (09:03)
[2021-07-29] MEDS: Aspirin Enteric Coated 81 MG Tablet PO SCH (09:03)
[2021-07-29] MEDS: Folic Acid 1 MG TABLET PO SCH (09:04)
[2021-07-29] MEDS: Vitamin B Complex/Vit C/Vit E 1 EACH TABLET PO SCH (09:04)
[2021-07-29 10:49] LABS: Hemoglobin 11.2 g/dL (12.9-16.9); Mean Corpuscular HGB Conc 33.9 g/dL (31.6-35.5); Mean Corpuscular Hemoglobin 31.2 pg (28.0-33.3); Mean Corpuscular Volume 91.9 fL (83.0-100.0); Mean Platelet Volume 10.5 fL (9.4-12.4); Platelet Count 180 K/mcL (140-400); Red Blood Count 3.59 M/mcL (4.19-5.50); Red Cell Distribution Width 13.1 % (11.5-14.5); White Blood Count 15.3 K/mcL (4.3-11.1)
[2021-07-29 11:09] LABS: BUN/Creatinine Ratio 17 (6-26); Blood Urea Nitrogen 20 mg/dL (8-23); Calcium 8.9 mg/dL (8.6-10.3); Carbon Dioxide 26 mEq/L (23-29); Chloride 100 mEq/L (98-107); Glucose 203 mg/dL (70-105); Osmolality,Calculated 286 (280-300); Potassium 3.6 mEq/L (3.5-5.1); Sodium 134 mEq/L (136-145); eGFR For African Americans > 60 (> 60); eGFR For Non-African Americans 59 (> 60)
[2021-07-29] MEDS: cefTRIAXone 1,000 MG in 0.9 % Sodium Chloride 10 ML IVP SCH (16:07)
[2021-07-29] MEDS: *HR* Heparin 5,000 UNIT/ML VIAL SQ SCH ×2 (16:10→19:57)
[2021-07-29] MEDS: Azithromycin 500 MG in 0.9 % Sodium Chloride 250 ML IVPB SCH (17:22)
[2021-07-29] MEDS: 0.9 % Sodium Chloride 1,000 ML IVC SCH (19:26)
[2021-07-30 03:19] LABS: Hematocrit 32.1 % (37.5-50.1); Hemoglobin 10.9 g/dL (12.9-16.9); Mean Corpuscular Hemoglobin 31.2 pg (28.0-33.3); Mean Platelet Volume 10.6 fL (9.4-12.4); Platelet Count 184 K/mcL (140-400); Red Blood Count 3.49 M/mcL (4.19-5.50); Red Cell Distribution Width 13.2 % (11.5-14.5); White Blood Count 12.6 K/mcL (4.3-11.1)
[2021-07-30 03:40] LABS: BUN/Creatinine Ratio 22 (6-26); Blood Urea Nitrogen 22 mg/dL (8-23); Carbon Dioxide 28 mEq/L (23-29); Chloride 102 mEq/L (98-107); Glucose 150 mg/dL (70-105); Osmolality,Calculated 290 (280-300); Potassium 3.6 mEq/L (3.5-5.1); Sodium 137 mEq/L (136-145); eGFR For African Americans > 60 (> 60); eGFR For Non-African Americans > 60 (> 60)
[2021-07-30] MEDS: Ipratropium/Albuterol Neb 3 ML IH SCH ×6 (04:15→23:19)
[2021-07-30] MEDS: *HR* Heparin 5,000 UNIT/ML VIAL SQ SCH ×4 (05:26→20:55)
[2021-07-30] MEDS: Budesonide/Formoterol 160/4.5 1 PUFF INH IH SCH ×2 (07:33→20:09)
[2021-07-30] MEDS: Chlorhexidine Rinse 15 ML MOUTHWASH MM SCH ×2 (10:13→20:56)
[2021-07-30] MEDS: Vitamin B Complex/Vit C/Vit E 1 EACH TABLET PO SCH (10:13)
[2021-07-30] MEDS: Thiamine (B-1) 100 MG TABLET PO SCH (10:13)
[2021-07-30] MEDS: Aspirin Enteric Coated 81 MG Tablet PO SCH (10:13)
[2021-07-30] MEDS: Folic Acid 1 MG TABLET PO SCH (10:14)
[2021-07-30] MEDS: predniSONE 20 MG TABLET PO SCH (10:14)
[2021-07-30] MEDS: Azithromycin 500 MG in 0.9 % Sodium Chloride 250 ML IVPB SCH (18:12)
[2021-07-30] MEDS: cefTRIAXone 1,000 MG in 0.9 % Sodium Chloride 10 ML IVP SCH (18:13)
[2021-07-31] MEDS: Ipratropium/Albuterol Neb 3 ML IH SCH ×6 (03:35→23:05)
[2021-07-31] MEDS: *HR* Heparin 5,000 UNIT/ML VIAL SQ SCH ×3 (05:11→20:35)
[2021-07-31] MEDS: Budesonide/Formoterol 160/4.5 1 PUFF INH IH SCH ×2 (07:46→19:56)
[2021-07-31] MEDS: Thiamine (B-1) 100 MG TABLET PO SCH (08:18)
[2021-07-31] MEDS: Chlorhexidine Rinse 15 ML MOUTHWASH MM SCH ×2 (08:19→20:34)
[2021-07-31] MEDS: Aspirin Enteric Coated 81 MG Tablet PO SCH (08:19)
[2021-07-31] MEDS: predniSONE 20 MG TABLET PO SCH (08:19)
[2021-07-31] MEDS: Folic Acid 1 MG TABLET PO SCH (08:19)
[2021-07-31] MEDS: Vitamin B Complex/Vit C/Vit E 1 EACH TABLET PO SCH (08:19)
[2021-07-31] MEDS: cefTRIAXone 1,000 MG in 0.9 % Sodium Chloride 10 ML IVP SCH (16:19)
[2021-07-31] MEDS: Azithromycin 500 MG in 0.9 % Sodium Chloride 250 ML IVPB SCH (17:57)
[2021-08-01 03:44] LABS: Basophils # 0.1 K/mcL (0.0-0.2); Basophils % 0.6 %; Eosinophils % 0.3 %; Hematocrit 37.9 % (37.5-50.1); Lymphocytes % 15.2 %; Mean Corpuscular Hemoglobin 31.1 pg (28.0-33.3); Mean Corpuscular Volume 91.3 fL (83.0-100.0); Mean Platelet Volume 9.7 fL (9.4-12.4); Monocytes # 1.3 K/mcL (0.0-1.3); Monocytes % 8.9 %; Neutrophils # 10.2 K/mcL (1.6-8.9); Platelet Count 248 K/mcL (140-400); Red Blood Count 4.15 M/mcL (4.19-5.50); Red Cell Distribution Width 12.8 % (11.5-14.5); White Blood Count 14.8 K/mcL (4.3-11.1)
[2021-08-01 04:00] LABS: BUN/Creatinine Ratio 22 (6-26); Blood Urea Nitrogen 23 mg/dL (8-23); Calcium 9.3 mg/dL (8.6-10.3); Carbon Dioxide 32 mEq/L (23-29); Chloride 95 mEq/L (98-107); Glucose 113 mg/dL (70-105); Osmolality,Calculated 288 (280-300); Potassium 3.2 mEq/L (3.5-5.1); Sodium 137 mEq/L (136-145); eGFR For African Americans > 60 (> 60); eGFR For Non-African Americans > 60 (> 60)
[2021-08-01] MEDS: Ipratropium/Albuterol Neb 3 ML IH SCH ×4 (04:11→11:55)
[2021-08-01 05:01] LABS: Hemoglobin 12.9 g/dL (12.9-16.9); Lymphocytes # 2.3 K/mcL (0.6-4.6)
[2021-08-01 05:03] LABS: Platelet Estimate Normal (Normal)
[2021-08-01] MEDS: *HR* Heparin 5,000 UNIT/ML VIAL SQ SCH (05:31)
[2021-08-01] MEDS ORDERED: Potassium Chloride Elixir 20 MEQ/15 ML UDC PO ONE (07:02)
[2021-08-01] MEDS: Budesonide/Formoterol 160/4.5 1 PUFF INH IH SCH (07:38)
[2021-08-01] MEDS: Vitamin B Complex/Vit C/Vit E 1 EACH TABLET PO SCH (08:15)
[2021-08-01] MEDS: Chlorhexidine Rinse 15 ML MOUTHWASH MM SCH (08:15)
[2021-08-01] MEDS: Thiamine (B-1) 100 MG TABLET PO SCH (08:16)
[2021-08-01] MEDS: Aspirin Enteric Coated 81 MG Tablet PO SCH (08:16)
[2021-08-01] MEDS: predniSONE 20 MG TABLET PO SCH (08:16)
[2021-08-01] MEDS: Folic Acid 1 MG TABLET PO SCH (08:16)
[2021-08-01 08:29] LABS: Magnesium 1.6 mg/dL (1.6-2.6)
[2021-08-01 11:24] VITALS: BP 147/81; PULSE 90; TEMP 98.1
[2021-08-01 11:58] VITALS: O2SAT 92
== END 2021-08-01 12:06 | disposition home health service (06) | DRG 871 ==
LOC: 3NENU 13:48 → EMEROOARM 13:48 → SUATTDRO 18:18 → 3NENU 19:57
PROVIDERS: ADMIT Internal Medicine; ATTEND Internal Medicine